=== PATIENT | female | born 1955 | race Caucasian/White ===

== ENCOUNTER 2020-02-27 18:45 | Emergency (ER) | payer OTHER, SELFPAY ==
--- NOTE | 2020-02-27 18:51 | ED.GENADULT ---
HPI - General Adult General Chief complaint: Dizziness Stated complaint: heart papitations/jittery Source: patient and RN notes reviewed Mode of arrival: ambulatory Limitations: no limitations History of Present Illness HPI narrative: This is a 64 years old female presents to the office for an evaluation of chest palpitation at around 4pm. Associated with shortness of breathe, jittery feeling, and feeling lightheaded. She states that it is hard to describe her feeling however she knows something is not right. States, she was playing a video game; felt sudden onset of chest palpitation. She also noticed her fitbit heart rate monitor jumped from 50s-90s while she was sitting and feeling her wrist pulse. She does not smoke or ever smoked. Admits to history of chest palpitation in the past prior to diagnosis of hypertension. Denies history of cardiac problem in the family. Denies drinking caffeinated coffee except one soda today. Related Data Home Medications Medication Instructions Recorded Confirmed lisinopril 02/27/20 Allergies Allergy/AdvReac Type Severity Reaction Status Date / Time No Known Allergies Allergy Verified 10/11/19 12:56 Review of Systems Review of Systems: Narrative: CONSTITUTIONAL: Denies fever or feeling ill ENT: Denies congestion/sore throat CARDIOVASCULAR: Denies chest pain. Reports palpitation RESPIRATORY: Denies wheezing, cough GASTROINTESTINAL: Denies abdominal pain, nausea, vomiting GENITOURINARY: Denies urinary symptoms SKIN: Denies rash MUSCULOSKELETAL: Denies extremities pain NEUROLOGIC: Denies numbness or tingling PMFSH Past Medical History Medical History (Updated 02/27/20 @ 19:19 by MARY Bautista) HTN (hypertension) Surgical History Surgical History H/O: hysterectomy Family History Family History (Updated 02/27/20 @ 19:33 by MARY Bautista) Other Diabetes mellitus Social History Social History (Updated 02/27/20 @ 19:19 by MARY Bautista) Smoking status: Never smoker Comments At time of signature, I agree with nursing past medical, surgical, social and family history. There is no relevant family history pertinent to the presenting complaint. Exam Narrative: Exam Narrative: GENERAL: This is a well-nourished, well-developed patient, in no apparent distress. HEAD: normocephalic, atraumatic. EYES: PERRL. Sclera clear/white. Vision is grossly intact. EARS: External ears normal, auditory canals clear and without drainage, TMs normal without perforation. Hearing grossly intact. NOSE: External nose normal with no obvious nasal discharge, nares without redness, no rhinorrhea. THROAT: Mucous membranes moist, posterior pharynx clear. NECK: Neck supple, non-tender without lymphadenopathy, masses or thyromegaly. CARDIOVASCULAR: Regular rate and rhythm without murmurs, gallops, or rubs. RESPIRATORY: Clear to auscultation. Breath sounds equal bilaterally. No wheezes, rales, or rhonchi. GASTROINTESTINAL: Abdomen soft, non-tender, nondistended. Bowel sounds are active. No hepato-splenomegaly, or palpable masses. No guarding. SKIN: warm, intact with no suspicious lesions or rash, good texture and turgor. NEURO: awake, alert, and oriented to person, place and time. There were no obvious focal neurologic abnormalities. Steady gait EXTREMITIES: Normal range of motion. No edema. No calf tenderness. Negative Homans sign bilaterally. BACK: Nontender without deformity or crepitance. No flank tenderness. Darren Coma Scale Eye Opening: Spontaneous 4 [place] Coma Scale Motor: Obeys Commands 6 Darren Coma Scale Verbal: Oriented 5 Course Vital Signs Vital signs: Vital Signs Temperature 98.6 F 02/27/20 19:00 Pulse Rate 76 02/27/20 19:00 Respiratory Rate 16 02/27/20 19:00 Blood Pressure 187/74 H 02/27/20 19:00 Pulse Oximetry 100 02/27/20 19:00 Temperature 98.6 F 02/27/20 19:00
[2020-02-27 19:00] VITALS: BP 187/74; PULSE 76; RESP 16; TEMP 37; O2SAT 100
--- NOTE | 2020-02-27 19:01 | ECG_ITS ---
Measurements Intervals [place] Rate: 75 P: 53 WV: 112 QRS: 35 QRSD: 118 T: 45 QT: 388 QTc: 435 Interpretive Statements SINUS RHYTHM WITH SHORT [place] INTERVAL INTRAVENTRICULAR CONDUCTION DELAY BASELINE ARTIFACT- I, II, III, AVL, AVF, V3 BORDERLINE ECG Electronically Signed On 02-28-2020 7:07:53 CDT by Lance Aguilar D.O.
== END 2020-02-27 19:18 | disposition left against medical advice (07) ==
PROVIDERS: Emergency Provider Nurse Practitioner; PCP Family Medicine
DX: R00.2 Palpitations (principal); I10 Essential (primary) hypertension
CPT/HCPCS: 93005; 99213; G0463

== ENCOUNTER 2024-12-30 16:09 | Emergency (ER) | payer MEDICARE, SELFPAY ==
--- OUTSIDE RECORDS SUMMARY | 2024-12-30 16:12 | XMS_ITS | Continuity of Care Document ---
Author Organization [facility] Address [address] [place] [address] Phone Care Team Providers Care Information [employer] Name Role Phone Tracy JOSHI, Abdullahi Unavailable Unavailable Allergies, Adverse Reactions, Alerts Substance Reaction Status Criticality No Known Allergies Active No Inform ation Medications Medication Instructions Dosage Effective Dates (start - stop) Status Comments TOPROL XL (unknown strength) Not Available - Active LISINOPRIL (unknown strength) Not Available - Active Procedures Procedure Date DISABILITY EXAMINATION Advance Directives Directive Yes / No Effective Date File Name No Information Encounters Encounter Description Practice Location Reason(s) For Visit Diagnoses Date Provider Providers Copied on Encounter DISABILITY EXAMINATION [facility] , [address], [place], [address], [place] tel:[phone] [facility] Bilateral hand pain Tracy Fernando. [address], [place], [place], [id number]. tel:[phone] Family History Family Member Type Diagnosis Age At Onset Mother Problem (finding) diabetes mellitus type 2 Mother Problem (finding) Cancer, unknown Father Problem (finding) Father Problem (finding) Cancer, unknown (Cause Of ) Mother Problem (finding) hypertension Payers Payer name Insurance type Covered democrat ID Authoriza tion(s) No Information Social History Type Description Quantity Date Captured Comments Alcohol Use Details No Caffeine Use Details Unknown Tobacco Use Status Never smoked tobacco 2014 Smoking Status Never smoker Non-Smoking Tobacco Use Details : No Details Available : No Details Available Sex Female Vital Signs Date / Time: Height Weight BMI Pulse Rate Blood Pressure Temperature Respiratory Rate Body Surface Area Head Circumference Head Circ. Percentile Wt./Oni. Percentile BMI percentile Pulse Ox Inhaled Ox 2:59 PM 67.00 in 98.883 kg (218.00 lbs) 34.1 4 kg/m eter (2) 136/78 mm[Hg] Chief Complaint And Reason For Visit No Information Reason For Referral Reason For Referral No Information History Of Present Illness Encounter Date Complaint History Of Prese nt Illness No Information Functional Status Date Functional Assessmen t No Information Instructions Date Instruction Additional Infor mation No Information Assessments Type Assessment Date assessment Bilateral hand pain Patient Care Teams Name Effective Dates (start - stop) Status Members No Information
--- OUTSIDE RECORDS SUMMARY | 2024-12-30 16:12 | XMS_ITS | Referral Summary ---
Author Organization [facility] Address [address] [place] [address] Care Team Providers Care Gis Geographer Name Role Phone Aiden Cage Primary Care Provider [phone] Clinton Ramos MD Unavailable [phone] Encounters Date Type Department Care Team Description 12/11/2024 8:45 AM VENDOR SPECIALIST Office Visit [facility] Medical [facility] Family Medicine at [address] [place] [address] Aiden Cage PA Class 2 severe obesity due to excess calories with serious comorbidity and body mass index (BMI) of 38.0 to 38.9 in adult (HCC) (Primary Dx); Essential (primary) hypertension 11/17/2024 8:45 AM VENDOR SPECIALIST Office Visit [facility] [address] [place] [address] [place] [phone] Clinton Ramos MD Primary osteoarthritis of right knee (Primary Dx); Primary osteoarthritis of both knees 10/23/2024 Telephone [facility] Medicine [address] [place] [address] [address] [place] [phone] Clinton Ramos MD pain in knee 10/05/2024 Telephone [facility] Family Medicine at [address] [place] [address] Aiden Cage PA Symptom Based Call from Last 3 Months Allergies Active Allergy Reactions Criticality Noted Date Comments Propoxyphene-Acetaminophen Stomach upset Low Medications amLODIPine (NORVASC) 5 mg tabletIndication s:Essential (primary) hypertension Take 1 tablet by mouth once daily 90 tablet 3 05/09/20 24 Active escitalopram (LEXAPRO) 10 mg tablet Take 1 tablet (10 mg total) by mouth daily 30 tablet 5 10/05/20 24 Active Additional Information Patient not taking.Reported on 12/11/2024 celecoxib (CeleBREX) 200 mg capsuleIndicatio ns:Acute pain of left knee Take 1 capsule (200 mg total) by mouth 2 (two) times a day 60 capsule 2 10/25/20 24 025 Active Additional Information Patient not taking.Reported on 12/11/2024 hydrOXYzine (ATARAX) 25 mg tablet Take 1 tablet (25 mg total) by mouth every 8 (eight) hours as needed for anxiety 30 tablet 10/30/20 24 Active Additional Information Patient not taking.Reported on 12/11/2024 lisinopriL (PRINIVIL,ZESTRI L) 20 mg tabletIndication s:Essential (primary) hypertension Take 1 tablet by mouth once daily 90 tablet 11/14/20 24 Active semaglutide (Wegovy) 0.25 mg/0.5 mL auto-injectorInd ications:Class 2 severe obesity due to excess calories with serious comorbidity and body mass index (BMI) of 38.0 to 38.9 in adult ([facility]) Inject 0.5 mL (0.25 mg total) under the skin every 7 days 2 mL 12/11/19 25 Active HYDROcodone-acet aminophen (NORCO) 5-325 mg per tabletIndication s:Pain Take 1 tablet by mouth every 8 (eight) hours as needed for pain 30 tablet 12/15/19 25 Active tirzepatide, weight loss, (Zepbound) 2.5 mg/0.5 mL pen injectorIndicati ons:Class 2 severe obesity due to excess calories with serious comorbidity and body mass index (BMI) of 36.0 to 36.9 in adult ([facility]) Inject 0.5 mL (2.5 mg total) under the skin every 7 days 2 mL 09/04/20 24 025 Discontin ued(Alter keshia therapy) HYDROcodone-acet aminophen (NORCO) 5-325 mg per tabletIndication s:Pain Take 1 tablet by mouth every 8 (eight) hours as needed for pain 30 tablet 11/24/20 025 Discontin ued(Reord er) Active Problems Problem Noted Date Diagnosed Date Low bone mass 08/11/2023 Assessment & Plan (08/11/2023 9:55 AM CDT): Chronic condition Start calcium and vitamin-D Varicose veins of both lower extremities with pa in 08/11/2023 Assessment & Plan (08/27/2023 11:22 AM CDT): Chronic bulky varicosities noted to both lower extremities which are symptomatic for the past several years. Complains of achiness and heaviness especially associated with periods of long standing. Has been wearing compression for the past several years which has not helped her symptoms. Plan: Obtain a lower extremity venous reflux and follow-up in the next few weeks. Assessment & Plan (08/11/2023 9:57 AM CDT): Chronic worsening Refer to vascular Grief 12/15/2021 Assessment & Plan (12/15/2021 4:14 PM VENDOR SPECIALIST): Chronic condition Start lexapro 10mg every day Continue xanax Spider bite 01/15/2021 Assessment & Plan (01/15/2021 3:27 PM VENDOR SPECIALIST): patient was advised of possible complications of procedure and aknowledges understanding. Consent was obtained prior to procedure. Betadine skin prep applied. 1% lidocaine with epi was used for local anesthetic. #11 blade was used to make a 1 cm incision dissected to appropriate depth of the right abdominal wall.. iodoform packing was placed. routine dressing was applied. Patient was advised of routine wound care and packing removal. Patient finesse procedure well without incident. Patient was advised to call with any concerns/complications. FH: CAD (coronary artery disease) 11/15/2020 Assessment & Plan (11/15/2020 11:13 AM VENDOR SPECIALIST): Refer to cardiology for stress test PAC (premature atrial contraction) 06/25/2020 Assessment & Plan (06/25/2020 2:44 PM CDT): Will start metoprolol since she is symptomatic with palpitations. Await echo. If no improvement with metoprolol we will refer to cardiology Class 2 severe obesity due t o excess calories with serious comorbidity and body mass index (BMI) of 38.0 to 38.9 in adult 09/12/2018 Assessment & Plan (12/11/2024 9:46 AM VENDOR SPECIALIST): Chronic not at goal Will likely be getting dion knee replacement sooner than later We will work on weight reduction Start wegovjeet to help with weight reduction prior to surgery Assessment & Plan (09/04/2024 10:24 AM CDT): Chronic and not well controlled Start zepbound Assessment & Plan (04/03/2024 1:22 PM CDT): Chronic and not well controlled Restart adipex Restart topamax titration Assessment & Plan (02/15/2024 9:59 AM CDT): Chronic not at goal and is halting needed surgery of knee replacment Needs 20lb + loss for surgical clearance Start zepound Assessment & Plan (11/11/2023 10:03 AM VENDOR SPECIALIST): Chronic uncontrolled, reduce processed carb/starch, exercise as finesse, whole foods Assessment & Plan (08/11/2023 9:38 AM CDT): Chronic not at goal Chronic uncontrolled, reduce processed carb/starch, exercise as finesse, whole foods D/c wegovy with no insurance coverage Assessment & Plan (06/08/2023 4:53 PM CDT): Chronic not at goal Start wegovy Assessment & Plan (03/30/2023 9:10 AM CDT): Chronic and not at goal Start adipex Chronic uncontrolled, reduce processed carb/starch, exercise as finesse, whole foods Assessment & Plan (07/06/2022 9:25 AM CDT): Chronic condition not at goal Work with 1200 calorie diet. Work on starting to read place her high carb high starch foods and drinks. Refill phentermine Continue Topamax Assessment & Plan (06/02/2022 9:11 AM CDT): Chronic and not well controlled Start adipex1/2 37.5 Start topamax. Assessment & Plan (05/02/2021 8:59 AM CDT): Chronic condition uncontrolled. Start topamax titration Assessment & Plan (04/10/2019 4:40 PM CDT): Continue with dietary changes and refill adipex. Situational anxiety 03/22/2018 Assessment & Plan (07/06/2022 9:24 AM CDT): Chronic condition intermittent exacerbations Refill Xanax. Assessment & Plan (01/26/2022 2:22 PM VENDOR SPECIALIST): Chronic persistent Responds to xanax. Assessment & Plan (12/15/2021 4:21 PM VENDOR SPECIALIST): Chronic condition worsening due to grief. continue with Xanax. Assessment & Plan (11/15/2020 11:14 AM VENDOR SPECIALIST): Well controlled on current regimen, no rx changes needed. Continue lifestyle modifications Assessment & Plan (10/18/2020 9:38 AM VENDOR SPECIALIST): Increase xanax #45 Assessment & Plan (07/26/2020 8:28 AM CDT): Well controlled on current regimen, no rx changes needed. Continue lifestyle modifications Assessment & Plan (05/28/2020 1:35 PM CDT): Improved with use of xanax particularly in the evening Essential (primary) hypertension 03/22/2018 Assessment & Plan (12/11/2024 9:45 AM VENDOR SPECIALIST): Chronic stable and well controlled Continue lisinopril Continue amlodipine Assessment & Plan (09/04/2024 10:28 AM CDT): Chronic stable and well controlled Continue lisinopril Continue amlodipine Assessment & Plan (05/29/2024 10:23 AM CDT): Chronic stable and well controlled Continue lisinopril Continue amlodipine Assessment & Plan (04/03/2024 1:23 PM CDT): Chronic stable and well controlled Continue lisinopril Continue amlodipine Assessment & Plan (11/11/2023 10:02 AM VENDOR SPECIALIST): Chronic stable and well controlled Continue lisinopril Continue amlodipine Assessment & Plan (08/11/2023 9:56 AM CDT): Chronic stable and well controlled Continue lisinopril Start amlodipine 5mg Assessment & Plan (06/08/2023 4:50 PM CDT): Chronic stable and well controlled Continue lisinopril Assessment & Plan (12/18/2022 7:47 AM VENDOR SPECIALIST): Chronic and stable Continue with amlodipine and lisinopril Assessment & Plan (07/06/2022 9:24 AM CDT): Chronic stable at goal Continue amlodipine and lisinopril. Assessment & Plan (06/02/2022 9:15 AM CDT): Chronic stable at goal continue amlodipine 5 mg lisinopril 20 mg Assessment & Plan (04/29/2022 2:33 PM CDT): Chronic uncontrolled Decrease amlodipine 5mg Hold metoprolol Assessment & Plan (12/15/2021 4:20 PM VENDOR SPECIALIST): Chronic condition \ Historically well-controlled elevated likely due to increased stress and anxiety with grieving today. Will continue to monitor going forward. Assessment & Plan (01/21/2021 9:10 AM VENDOR SPECIALIST): Chronic conditions stable Refill metoprolol Continue current regimen Assessment & Plan (11/15/2020 11:36 AM VENDOR SPECIALIST): Well controlled on current regimen, no rx changes needed. Continue lifestyle modifications Assessment & Plan (10/18/2020 9:33 AM VENDOR SPECIALIST): Change script to lisinopril 20mg tablet Assessment & Plan (08/23/2020 10:17 AM CDT): Increaser metoprolol xl 100mg Decrease lisinopril 20mg Assessment & Plan (07/26/2020 8:11 AM CDT): Increase metoprolol 100mg Assessment & Plan (06/25/2020 2:42 PM CDT): Start toprol xl 50mg Assessment & Plan (05/28/2020 1:35 PM CDT): Start hctz 12.5mg Improved but still not at goal Assessment & Plan (05/14/2020 1:29 PM CDT): Increase lisinopril 40mg Ekg: Normal sinus rhythm heart rate 78 no acute changes no ST elevation or depression no irregularity. Assessment & Plan (04/10/2019 4:36 PM CDT): Well controlled on current regimen, no rx changes needed. Continue lifestyle modifications Other spondylosis, cervical region 06/22/2017 Primary osteoarthritis of both knees 01/11/2017 Assessment & Plan (09/04/2024 10:30 AM CDT): Chronic worsening with bone on bone Continue f/u with orthopedic Continue norco Preparing for dion knee replacement Give handicap placard Assessment & Plan (05/29/2024 10:24 AM CDT): Chronic worsening with bone on bone Continue f/u with orthopedic Continue norco Preparing for dion knee replacement Assessment & Plan (11/11/2023 10:02 AM VENDOR SPECIALIST): Chronic worsening with bone on bone Continue f/u with orthopedic Continue norco Preparing for dion knee replacement Assessment & Plan (08/11/2023 9:37 AM CDT): Chronic worsening with bone on bone Continue f/u with orthopedic Continue norco Assessment & Plan (06/08/2023 4:49 PM CDT): Chronic not well controlled Had to postpone knee replacement secondary to family medical needs D/c tylenol 3 Start norco 5/325 q8 hrs prn #60 Assessment & Plan (07/06/2022 9:24 AM CDT): Chronic condition persistent symptoms progressive in nature Refill tramadol Assessment & Plan (06/02/2022 9:15 AM CDT): Chronic condition in stage Continue follow-up with orthopedic implant for bilateral knee replacement. Assessment & Plan (04/29/2022 2:34 PM CDT): Chronic conditon Persistent and seeing ortho with likely knee replacement in near future Continue tramadol and celebrex. Assessment & Plan (01/26/2022 2:10 PM VENDOR SPECIALIST): Chronic and worsening Refer to dr schmidt. Reviewed xray images with patient Assessment & Plan (05/02/2021 8:54 AM CDT): Chronic condition uncontrolled with worsening of symptoms. Give dion knee injections today. RISKS AND BENEFITS OF PROCEDURE WERE EXPLAINED TO PATIENT AND CONSENT FORM WAS SIGNED. AREA WAS PREPPED WITH BETADINE TO SKIN AND DRAPED IN A STERILE MANOR. 1 1/2CC kenolog AND 1 1/2 CC LIDOCAINE WAS INJECTED INTO right and left knee JOINT WITH LATERAL APPROACH. PATIENT TOLERATED PROCEDURE WELL WITHOUT COMPLICATION. APPROPRIATE BANDAGE APPLIED. PATIENT ADVISED TO CALL WITH ANY CONCERNS/COMPLICATIONS. Assessment & Plan (01/21/2021 9:10 AM VENDOR SPECIALIST): Chronic condition stable but progressive in nature. Continue [id number] anti-inflammatories p.r.n.. May use glucosamine chondroitin as well. Lumbar back pain 10/08/2016 Bilateral chronic knee pain 07/13/2016 Effusion of knee 12/23/2015 Osteoarthritis of knee 12/23/2015 Assessment & Plan (12/18/2022 7:50 AM VENDOR SPECIALIST): Chronic and persistent following with orthopedic and will likely be obtaining knee replacement. Assessment & Plan (12/15/2021 4:20 PM VENDOR SPECIALIST): Chronic condition worsening Order x-ray left knee Assessment & Plan (08/23/2020 10:18 AM CDT): Xray left Assessment & Plan (07/26/2020 8:21 AM CDT): RISKS AND BENEFITS OF PROCEDURE WERE EXPLAINED TO PATIENT AND CONSENT FORM WAS SIGNED. AREA WAS PREPPED WITH BETADINE TO SKIN AND DRAPED IN A STERILE MANOR. 1 1/2CC kenolog AND 1 1/2 CC LIDOCAINE WAS INJECTED INTO left knee JOINT WITH LATERAL APPROACH. PATIENT TOLERATED PROCEDURE WELL WITHOUT COMPLICATION. APPROPRIATE BANDAGE APPLIED. PATIENT ADVISED TO CALL WITH ANY CONCERNS/COMPLICATIONS. Immunizations Name Administration Dates Next Due Influenza, Quadrivalent, Hig h Dose, Preservative Free, Intrr 11/11/2023 Influenza, Quadrivalent, Rec ombinant, Egg Free, Preservative Free, Intramuscular 10/03/2022,11/25/2021 Influenza, Quadrivalent, Spl it, Preservative Free, Intramuscular 10/21/2020,09/20/2020,08/02/2019,08/12,08/03/2017 Influenza, Trivalent, High D ose, Split, Preservative Free, Intramuscular 09/04/2024 Influenza, Trivalent, IM (MDV) 08/18/2015,2012 Influenza, Trivalent, Preser vative Free, Intramuscular 08/05/2016 Pneumococcal Conjugate Pcv20 11/11/2023 Tdap 08/03/2017 Social History Tobacco Use Types Packs/Day Years Used Date Smoking Tobacco: Never Smokeless Tobacco: Never Tobacco Cessation:Counseling Given: Not Answered Alcohol Use Standard Drinks/Week Comments Yes 0 (1 standard drink = 0.6 oz pur e alcohol) occasionally AUDIT-C Answer Date Recorded Q1: How often do you have a drink containing alc ohol? Monthly or less 09/04/2024 Q2: How many drinks containi ng alcohol do you have on a typical day when you are drinking? 1 or 2 09/04/2024 Q3: How often do you have si x or more drinks on one occasion? Less than monthly 09/04/2024 PHQ-2 Answer Date Recorded PHQ-2 Total Score (If total score is 3 or more points, staff should administer the PHQ-9) 0 02/15/2024 Comments No Sex and Gender Information Value Date Recorded Sex Assigned at Not on file Legal Sex Female 6:57 AM VENDOR SPECIALIST Gender Identity Not on file Sexual Orientation Not on file Last Filed Vital Signs Vital Sign Reading Time Taken Comments Blood Pressure 142/78 12/11/2024 9:02 AM VENDOR SPECIALIST Pulse 73 12/11/2024 9:02 AM VENDOR SPECIALIST Temperature 36.3 ??C (97.3 ??F) 12/11/2024 9:02 AM CS T Respiratory Rate 18 12/11/2024 9:02 AM VENDOR SPECIALIST Oxygen Saturation 98% 12/11/2024 9:02 AM VENDOR SPECIALIST Inhaled Oxygen Concentration - - Weight 112.4 kg (247 lb 11.2 oz) 12/11/2024 9:02 AM VENDOR SPECIALIST Height 170.2 cm (5' 7.01 ) 12/11/2024 9:02 AM CS T Body Mass Index 38.79 12/11/2024 9:02 AM VENDOR SPECIALIST Plan of Treatment Not on file Procedures Procedure Name Priority Date/Time Associated Diagnosis Comments IN ARTHROCENTESIS ASPIR&/INJ MAJOR JT/BURSA W/O US Routine 11/17/2024 8:45 AM VENDOR SPECIALIST Primary osteoarthritis of right knee Primary osteoarthritis of both knees HEPATITIS C ANTIBODY Routine 12/21/2023 10:48 AM VENDOR SPECIALIST Need for hepatitis C screening test SCREENING MAMMOGRAM BILATERAL W BATOOL Schedule Routine, Read Routine (OP Routine) 12/01/2023 3:11 PM VENDOR SPECIALIST Screening mammogram, encounter for DEXA AXIAL SKELETON BONE DENSITY 1 OR MORE SITES Schedule Routine, Read Routine (OP Routine) 06/29/2023 7:33 AM CDT Menopausal and perimenopausal disorder COLONOSCOPY Routine 05/03/2023 from Last 3 Months or Most Recently Relevant to Health Maintenance Results * IN ARTHROCENTESIS ASPIR&/INJ MAJOR JT/BURSA W/O US (11/17/2024 8:45 AM VENDOR SPECIALIST) Narrative Clinton Ramos MD - 11/17/2024 8:45 AM VENDOR SPECIALIST Clinton Ramos MD ? 11/17/2024 ??9:18 AM Large Joint (Hip, Knee, Shoulder) Injection: bilateral knee Performed by: Clinton Ramos MD Authorized by: Clinton Ramos MD ?? Large Joint Injection/Aspiration: ??Consent Given by: ??Patient ??Written consent obtained: Yes ?? Supporting Documentation: ??Indications: ??Pain Procedure Details: ??Location: ??Knee ??Site: ??Bilateral knee ??Prep: patient was prepped using a clean technique (The skin was anesthetized with ethyl chloride spray prior to the injections.) ?Needle Size: ??25 G ??Medications Right Large Joint Injection: ??2 mL lidocaine 10 mg/mL (1 %); 40 mg triamcinolone 40 mg/mL ??Medications Left ??Large Joint Injection: ??2 mL lidocaine 10 mg/mL (1 %); 40 mg triamcinolone 40 mg/mL ??Patient tolerance: ??Patient tolerated the procedure well with no immediate complications Clinton Ramos MD IN CLINIC/BEDSIDE ORDERABL ES Final Result * Hepatitis C antibody Blood (12/21/2023 10:48 AM VENDOR SPECIALIST) Hep C Ab Nonreactive Nonreactive [facility] Comment: Antibodies to HCV not detected. Does NOT exclude the possibility of recent exposure to HCV. Current interpretive data was last revised on 22 Interpretive Data Nonreactive: Antibodies to HCV not detected. Does NOT exclude the possibility of recent exposure to HCV. Equivocal: Equivocal for HCV antibodies. Supplemental molecular testing will be automatically performed to determine infection status in accordance with current CDC screening recommendations. ?? Reactive: Positive for HCV antibodies. ??This may represent current or past HCV infection. Supplemental molecular testing will be automatically performed to determine ??current infection status in accordance with current CDC screening recommendations. Interpretive data was last revised on 2020. Blood 12/21/2023 10:4 8 AM VENDOR SPECIALIST 12/21/2023 11:04 AM VENDOR SPECIALIST us [facility] - [facility] Final Result [facility] [address] [facility] Department [place] [address] * Screening Mammogram Bilateral W Batool (12/01/2023 3:11 PM VENDOR SPECIALIST) Anatomical Region Laterality Modality Breast Bilateral Mammography Impressions 12/01/2023 3:14 PM VENDOR SPECIALIST BI-RADS?? ATLAS category (overall): 1 - Negative There is no mammographic evidence of malignancy. A 1 year screening mammogram is recommended. The patient has been or will be contacted. We recommend annual screening mammography for women at average risk of breast cancer beginning at age 40, based on guidelines of the [employer] [place] [employer] (ACR Practice Parameter for the Performance of Screening and Diagnostic Mammography) and [employer] [place] [employer]. For women with and elevated risk of breast cancer, please refer to the ACR Practice Parameter for specific screening recommendations. The patient will be entered into a reminder system with a target due date of 1 year for her next screening exam. Narrative 12/01/2023 3:14 PM VENDOR SPECIALIST Screening Mammogram Bilateral W Batool: 12/01/23 The study was acquired using full field digital technology and interpreted from soft copy. 2D digital mammographic views, as well as 3D digital tomosynthesis were performed in the CC, XCCL, and MLO projections. CLINICAL: ??Screening mammogram, encounter for (order) ??No relevant medical history has been documented for this patient. ??No known family history of breast cancer. COMPARISONS: 06/24/2021 Screening Mammogram Bilateral W Batool 07/19/2018 Screening Mammogram 2D Bilateral 04/08/2017 Screening Mammogram 2D Bilateral BREAST TISSUE: The breasts have scattered areas of fibroglandular density. FINDINGS: No suspicious masses, suspicious calcifications, or other suspicious findings are seen within either breast. There has been no suspicious change. us Aiden [facility] IMG MAMMO PROCEDURES Final Resu lt * Dexa Axial Skeleton Bone Density 1 or 2 Site (06/29/2023 7:33 AM CDT) Anatomical Region Laterality Modality Body N/A Mammography 06/30/2023 7:58 AM CDT Narrative 06/30/2023 7:59 AM CDT EXAM DESCRIPTION: DEXA AXIAL SKELETON BONE DENSITY 1 OR MORE SITES REASON FOR STUDY: 67 y/o ?? year old ??F ??with given history of: ??Postmenopausal status. ??Patient has taken or is taking vitamin-D. ? 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 Maximum height: ??68 ??inches ? Weight: ??227.5 ??pounds Risk factors: ??None COMPARISON: None available FINDINGS: AP LUMBAR SPINE L1-L4: Total BMD is 1.054 g/cm2 T-score is 0.1 LEFT HIP: Total BMD is 0.874 g/cm2 T-score is -0.6 Femoral neck BMD is 0.663 g/cm2 T-score is -1.7 ?? FRAX: 10 year risk for a major osteoporotic fracture is 8.6 %, 10 year risk for a hip fracture is 1.0 % IMPRESSION: Low bone mass REFERENCE: Bone mineral density: ? Normal (T-score above or = -1.0) ? Low bone mass ??(T-score between -1.0 and -2.5) replaces the previously used term osteopenia ? Osteoporosis (T-score = or below -2.5) Medical evaluation for secondary causes of low bone mineral density may be appropriate. FRAX is a World Health Organization validated fracture risk assessment tool that calculates a person's 10 year probability of a major osteoporosis related fracture and hip fracture. ??According to the National Osteoporosis Foundation guidelines, postmenopausal women and men age 50 or older with low bone mass and a 10 year probability of a major osteoporosis related fracture = or greater than 20% or a 10 year probability of a hip fracture = or greater than 3% should be considered for treatment. For further information, including treatment recommendations, please refer to the 2019 ISCD Official Positions (http://www.iscd.org) and the NOF's Clinician's Guide to Prevention and Treatment of Osteoporosis (http://www.nof.org/professionals/clinical-guidelines) THIS IS AN ELECTRONICALLY VERIFIED FINAL REPORT 06/30/2023 7:59 AM - Electronically signed by ??Ghazala Junior M.D. TW: TW D: ??06/30/2023 7:59 AM T: ??06/30/2023 7:59 AM Report ID: [id number] Reading Location: ??[id number] Procedure Note Ghazala Junior MD - 06/30/2023 EXAM DESCRIPTION: DEXA AXIAL SKELETON BONE DENSITY 1 OR MORE SITES REASON FOR STUDY: 67 y/o year old F with given history of:Postmenopausal status. Patient has taken or is taking vitamin-D. 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 (S/N [id number]) CLINICAL INFORMATION: Current height: 67 inches Maximum height: 68 inches Weight: 227.5 pounds Risk factors: None COMPARISON: None available FINDINGS: AP LUMBAR SPINE L1-L4: Total BMD is 1.054 g/cm2 T-score is 0.1 LEFT HIP: Total BMD is 0.874 g/cm2 T-score is -0.6 Femoral neck BMD is 0.663 g/cm2 T-score is -1.7 FRAX: 10 year risk for a major osteoporotic fracture is 8.6 %, 10 year risk fora hip fracture is 1.0 % IMPRESSION: Low bone mass REFERENCE: Bone mineral density: Normal (T-score above or = -1.0) Low bone mass (T-score between -1.0 and -2.5) replaces thepreviously used term osteopenia Osteoporosis (T-score = or below -2.5) Medical evaluation for secondary causes of low bone mineral density may be appropriate. FRAX is a World Health Organization validated fracture risk assessmenttool that calculates a person's 10 year probability of a major osteoporosisrelated fracture and hip fracture. According to the National OsteoporosisFoundation guidelines, postmenopausal women and men age 50 or older with low bonemass and a 10 year probability of a major osteoporosis related fracture = or greater than 20% or a 10 year probability of a hip fracture = or greaterthan 3% should be considered for treatment. For further information, including treatment recommendations, please referto the 2019 ISCD Official Positions (http://www.iscd.org) and the NOF's Clinician's Guide to Prevention and Treatment of Osteoporosis (http://www.nof.org/professionals/clinical-guidelines) THIS IS AN ELECTRONICALLY VERIFIED FINAL REPORT 06/30/2023 7:59 AM - Electronically signed by Ghazala Junior M.D. TW: TW Report ID: [id number] Reading Location: [id number] Aiden MCLEOD IMG DXA PROCEDURES Final Result * Colonoscopy (05/03/2023) Anatomical Region Laterality Modality Other Historical Provider MD ENDOSCOPY PROCEDURES Jesusita l Result from Last 3 Months or Most Recently Relevant to Health Maintenance [facility] MEDIC[facility] SOLUTIONS [facility] MEDICARE SOLUTIONS Care Teams Gis Geographer Relationship Specialty Start Date End Date Aiden Cage PA PCP - General Family Medicine 08/26/22 Clinton Ramos MD [address] [facility] [address] Consulting Physician Orthopedic Surgery 02/15/24
--- OUTSIDE RECORDS SUMMARY | 2024-12-30 16:12 | XMS_ITS | Clinical Summary ---
Author Organization [facility] Address [address] [place] [address] Care Team Providers Care Paper Sorter And Counter Name Role Phone Aiden Cage Primary Care Provider [phone] Clinton Ramos MD Unavailable [phone] Allergies Active Allergy Reactions Criticality Noted Date [...] as needed for pain 30 tablet 11/24/20 24 025 Discontin ued(Reord er) Active Problems Problem [...] 12/15/2021 Assessment & Plan (12/15/2021 4:14 PM CORN DETASSELER): Chronic condition Start lexapro 10mg every day Continue xanax Spider bite 01/15/2021 Assessment & Plan (01/15/2021 3:27 PM CORN DETASSELER): patient was advised of possible complications of [...] 11/15/2020 Assessment & Plan (11/15/2020 11:13 AM CORN DETASSELER): Refer to cardiology for stress test PAC [...] 09/12/2018 Assessment & Plan (12/11/2024 9:46 AM CORN DETASSELER): Chronic not at goal Will likely be getting dion knee replacement sooner than later We will work on weight reduction Start christie to help with weight reduction prior to [...] zepound Assessment & Plan (11/11/2023 10:03 AM CORN DETASSELER): Chronic uncontrolled, reduce processed carb/starch, exercise as [...] Xanax. Assessment & Plan (01/26/2022 2:22 PM CORN DETASSELER): Chronic persistent Responds to xanax. Assessment & Plan (12/15/2021 4:21 PM CORN DETASSELER): Chronic condition worsening due to grief. continue with Xanax. Assessment & Plan (11/15/2020 11:14 AM CORN DETASSELER): Well controlled on current regimen, no rx changes needed. Continue lifestyle modifications Assessment & Plan (10/18/2020 9:38 AM CORN DETASSELER): Increase xanax #45 Assessment & Plan (07/26/2020 8:28 AM CDT): Well controlled on current regimen, no rx changes needed. Continue lifestyle modifications Assessment & Plan (05/28/2020 1:35 PM CDT): Improved with use of xanax particularly in the evening Essential (primary) hypertension 03/22/2018 Assessment & Plan (12/11/2024 9:45 AM CORN DETASSELER): Chronic stable and well controlled Continue lisinopril Continue amlodipine Assessment & Plan (09/04/2024 10:28 AM CDT): Chronic stable and well controlled Continue lisinopril Continue amlodipine Assessment & Plan (05/29/2024 10:23 AM CDT): Chronic stable and well controlled Continue lisinopril Continue amlodipine Assessment & Plan (04/03/2024 1:23 PM CDT): Chronic stable and well controlled Continue lisinopril Continue amlodipine Assessment & Plan (11/11/2023 10:02 AM CORN DETASSELER): Chronic stable and well controlled Continue lisinopril Continue amlodipine Assessment & Plan (08/11/2023 9:56 AM CDT): Chronic stable and well controlled Continue lisinopril Start amlodipine 5mg Assessment & Plan (06/08/2023 4:50 PM CDT): Chronic stable and well controlled Continue lisinopril Assessment & Plan (12/18/2022 7:47 AM CORN DETASSELER): Chronic and stable Continue with amlodipine and lisinopril Assessment & Plan (07/06/2022 9:24 AM CDT): Chronic stable at goal Continue amlodipine and lisinopril. Assessment & Plan (06/02/2022 9:15 AM CDT): Chronic stable at goal continue amlodipine 5 mg lisinopril 20 mg Assessment & Plan (04/29/2022 2:33 PM CDT): Chronic uncontrolled Decrease amlodipine 5mg Hold metoprolol Assessment & Plan (12/15/2021 4:20 PM CORN DETASSELER): Chronic condition \ Historically well-controlled elevated likely due to increased stress and anxiety with grieving today. Will continue to monitor going forward. Assessment & Plan (01/21/2021 9:10 AM CORN DETASSELER): Chronic conditions stable Refill metoprolol Continue current regimen Assessment & Plan (11/15/2020 11:36 AM CORN DETASSELER): Well controlled on current regimen, no rx changes needed. Continue lifestyle modifications Assessment & Plan (10/18/2020 9:33 AM CORN DETASSELER): Change script to lisinopril 20mg tablet Assessment [...] replacement Assessment & Plan (11/11/2023 10:02 AM CORN DETASSELER): Chronic worsening with bone on bone Continue [...] celebrex. Assessment & Plan (01/26/2022 2:10 PM CORN DETASSELER): Chronic and worsening Refer to dr schmidt. [...] CONCERNS/COMPLICATIONS. Assessment & Plan (01/21/2021 9:10 AM CORN DETASSELER): Chronic condition stable but progressive in nature. Continue glwr-wsm-eyeoalk anti-inflammatories p.r.n.. May use glucosamine chondroitin as well. Lumbar back pain 10/08/2016 Bilateral chronic knee pain 07/13/2016 Effusion of knee 12/23/2015 Osteoarthritis of knee 12/23/2015 Assessment & Plan (12/18/2022 7:50 AM CORN DETASSELER): Chronic and persistent following with orthopedic and will likely be obtaining knee replacement. Assessment & Plan (12/15/2021 4:20 PM CORN DETASSELER): Chronic condition worsening Order x-ray left knee [...] PATIENT ADVISED TO CALL WITH ANY CONCERNS/COMPLICATIONS. Encounters Date Type Department Care Team Description 12/11/2024 8:45 AM CORN DETASSELER Office Visit [facility] at [address] [place] [address] Aiden Cage PA Class 2 severe obesity due to excess calories with serious comorbidity and body mass index (BMI) of 38.0 to 38.9 in adult (HCC) (Primary Dx); Essential (primary) hypertension 11/17/2024 8:45 AM CORN DETASSELER Office Visit [facility] [address] [place] [address] [place] [phone] Clinton Ramos MD Primary osteoarthritis of right knee (Primary Dx); Primary osteoarthritis of both knees 10/23/2024 Telephone [facility] [address] [place] [address] [address] [place] [address] Clinton Ramos MD pain in knee 10/05/2024 Telephone [facility] at [address] [place] [address] Aiden Cage PA Symptom Based Call from Last 3 Months Immunizations Name Administration Dates Next Due Influenza, Quadrivalent, Hig h Dose, Preservative Free, Intrr 11/11/2023 Influenza, Quadrivalent, Rec ombinant, Egg Free, Preservative Free, Intramuscular 10/03/2022,11/25/2021 Influenza, Quadrivalent, Spl it, Preservative Free, Intramuscular 10/21/2020,09/20/2020,08/02/2019,08/12,08/03/2017 Influenza, Trivalent, High D ose, Split, Preservative Free, Intramuscular 09/04/2024 Influenza, Trivalent, IM (MDV) 08/18/2015,2012 Influenza, Trivalent, Preser vative Free, Intramuscular 08/05/2016 Pneumococcal Conjugate Pcv20 11/11/2023 Tdap 08/03/2017 Surgical History Surgery Date Site/Laterality Comments CERVICAL BIOPSY W/ LOOP ELECTRODE EXCISION FINGER SURGERY KNEE SURGERY HYSTERECTOMY OOPHORECTOMY Bilateral Medical History Medical History Date Comments Hypertension Anxiety Obesity MVP (mitral valve prolapse) Family History Medical History Relation Name Comments Diabetes Brother Heart disease Brother Hyperlipidemia Brother Hypertension Brother Cancer Daughter 1 Cancer Father Family history of malignant neoplasm - (Added by TW Conv) Arthritis Mother Family history of arthritis - (Added by TW Conv) Cancer Mother Family history of malignant neoplasm - (Added by TW Conv) Diabetes Mother Family history of diabetes mellitus - (Added by TW Conv) Hypertension Mother Family history of hypertension - (Added by TW Conv) Diabetes Sister 1 Hypertension Sister 1 Family history of hypertension - (Added by TW Conv) Diabetes Sister 2 Family history of diabetes mellitus - (Added by TW Conv) Hypertension Sister 2 Relation Name Status Comments Brother Alive Daughter 1 Alive Daughter 2 Alive Father Mother Sister 1 Sister 2 Son Alive Social History Tobacco Use Types Packs/Day Years [...] on file Legal Sex Female 6:57 AM CORN DETASSELER Gender Identity Not on file Sexual Orientation Not on file Obstetrics History Para Term AB IAB SAB Ectopic Multiple Livin g Live Births 3 3 3 Date Outcome GA Total Labor Labor/2nd/3rd Weight Sex Type Anes PTL Tania A1 A5 Name Clin Term Term Term Last Filed Vital Signs Vital Sign Reading Time Taken Comments Blood Pressure 142/78 12/11/2024 9:02 AM CORN DETASSELER Pulse 73 12/11/2024 9:02 AM CORN DETASSELER Temperature 36.3 ??C (97.3 ??F) 12/11/2024 9:02 AM CS T Respiratory Rate 18 12/11/2024 9:02 AM CORN DETASSELER Oxygen Saturation 98% 12/11/2024 9:02 AM CORN DETASSELER Inhaled Oxygen Concentration - - Weight 112.4 kg (247 lb 11.2 oz) 12/11/2024 9:02 AM CORN DETASSELER Height 170.2 cm (5' 7.01 ) 12/11/2024 9:02 AM CS T Body Mass Index 38.79 12/11/2024 9:02 AM CORN DETASSELER Plan of Treatment Health Maintenance Due Date Last Done Comments Hepatitis B Screening 1975 Zoster Vaccine (1 of 2) 2007 Covid-19 Vaccine (2023-2 5 season) 2024 10/28/2022, 06/10/2022, 11/13/2021, Additional history exists Breast Cancer Screening-Mammogram 12/01/2024 12/01/2023, 06/24/2021, 07/19/2018, Additional history exists Depression Screening 02/14/2025 02/15/2024, 06/08/2023, 06/02/2022, Additional history exists Fall Risk Assessment 02/14/2025 02/15/2024, 12/18/19 23 Well Visit 65+ 02/14/2025 02/15/2024 Osteoporosis Screening-Bone Density Scan 06/29/2025 06/29/2023 DTaP/Tdap/Td Vaccine (2 - Td or Tdap) 08/03/2027 08/03/2017 Colon Cancer Screening-Colonoscopy 05/03/2028 05/03/2023, 03/23/2023, 04/13/2017 Colon Cancer Screening-CT Colonography Discontinued 05/03/2023, 03/23/2023, 04/13/2017 Colon Cancer Screening-DNA Stool Discontinued 05/03/2023, 03/23/2023, 04/13/2017 Colon Cancer Screening-FIT Discontinued 05/03, 03/23/2023, 04/13/2017 Colon Cancer Screening-Sigmoidoscopy Discontinued 05/03/2023, 03/23/2023, 04/13/2017 Pneumococcal vaccine 65+ Completed 11/11/2023 Hepatitis C Screening Completed 12/21/2023 Influenza Vaccine Completed 09/04/2024, , 10/03/2022, Additional history exists Procedures Procedure Name Priority Date/Time Associated Diagnosis Comments AL ARTHROCENTESIS ASPIR&/INJ MAJOR JT/BURSA W/O US Routine 11/17/2024 8:45 AM CORN DETASSELER Primary osteoarthritis of right knee Primary osteoarthritis of both knees HEPATITIS C ANTIBODY Routine 12/21/2023 10:48 AM CORN DETASSELER Need for hepatitis C screening test SCREENING MAMMOGRAM BILATERAL W BATOOL Schedule Routine, Read Routine (OP Routine) 12/01/2023 3:11 PM CORN DETASSELER Screening mammogram, encounter for DEXA AXIAL SKELETON BONE DENSITY 1 OR MORE SITES Schedule Routine, Read Routine (OP Routine) 06/29/2023 7:33 AM CDT Menopausal and perimenopausal disorder COLONOSCOPY Routine 05/03/2023 from Last 3 Months or Most Recently Relevant to Health Maintenance Results * AL ARTHROCENTESIS ASPIR&/INJ MAJOR JT/BURSA W/O US (11/17/2024 8:45 AM CORN DETASSELER) Narrative Clinton Ramos MD - 11/17/2024 8:45 AM CORN DETASSELER Clinton Ramos MD ? 11/17/2024 ??9:18 AM [...] the procedure well with no immediate complications us Clinton Ramos MD IN CLINIC/BEDSIDE ORDERABL ES Final Result * Hepatitis C antibody Blood (12/21/2023 10:48 AM CORN DETASSELER) Hep C Ab Nonreactive Nonreactive MARISOL LIN Comment: Antibodies to HCV not detected. Does [...] on 2020. Blood 12/21/2023 10:4 8 AM CORN DETASSELER 12/21/2023 11:04 AM CORN DETASSELER Aiden MCLEOD LAB MICROBIOLOGY - GENERAL VALERIE HALL Final Result MARISOL [address] [facility] Department [place] [address] * Screening Mammogram Bilateral W Batool (12/01/2023 3:11 PM CORN DETASSELER) Anatomical Region Laterality Modality Breast Bilateral Mammography Impressions 12/01/2023 3:14 PM CORN DETASSELER BI-RADS?? ATLAS category (overall): 1 - Negative There is no mammographic evidence of malignancy. A 1 year screening mammogram is recommended. The patient has been or will be contacted. We recommend annual screening mammography for women at average risk of breast cancer beginning at age 40, based on guidelines of the [place] [employer] (ACR Practice Parameter for the Performance of Screening and Diagnostic Mammography) and [place] [employer] and [employer]nec[employer]. For women with and elevated risk of breast cancer, please refer to the ACR Practice Parameter for specific screening recommendations. The patient will be entered into a reminder system with a target due date of 1 year for her next screening exam. Narrative 12/01/2023 3:14 PM CORN DETASSELER Screening Mammogram Bilateral W Batool: 12/01/23 The [...] has taken or is taking vitamin-D. ? Psychological Assistant/Model: [employer] A (S/N [id number]) CLINICAL INFORMATION: Current height: ??67 ??inches ? [...] AM T: ??06/30/2023 7:59 AM Report ID: [id number] Reading Location: ??[id number] Procedure Note Ghazala Junior MD - 06/30/2023 EXAM DESCRIPTION: DEXA AXIAL SKELETON BONE DENSITY 1 OR MORE SITES REASON FOR STUDY: 67 y/o year old F with given history of:Postmenopausal status. Patient has taken or is taking vitamin-D. Psychological Assistant/Model: [employer] A (S/N [id number]) CLINICAL INFORMATION: Current height: 67 inches Maximum [...] 7:59 AM - Electronically signed by Ghazala Juniro M.D. TW: TW Report ID: [id number] Reading Location: [id number] Aiden MCLEOD IMG DXA PROCEDURES Final Result * Colonoscopy (05/03/2023) Anatomical Region Laterality Modality Other Historical Provider ENDOSCOPY PROCEDURES Jesusita l Result from Last 3 Months or Most Recently Relevant to Health Maintenance Insurance [place] CHO[place] MEDICARE SOLUT[place] [facility] MEDICARE SOLUTIONS Care Teams Paper Sorter And Counter Relationship Specialty Start Date End Date Aiden Cage PA PCP - General Family Medicine 08/26/22 Clinton Ramos MD [address] [facility] [address] [place] [address] [place] [id number] Consulting Physician Orthopedic Surgery 02/15/24
--- OUTSIDE RECORDS SUMMARY | 2024-12-30 16:12 | XMS_ITS | Clinical Summary ---
Author Organization [facility] Address [address] [place] [address]. [place], [place] [id number] [place] [address] Care Team Providers Care Manager System Name Role Phone Unavailable Primary Care Provider Unavailabl e Social History Tobacco Use Types Packs/Day Years Used Date Smoking Tobacco: Never Assessed Comments Unknown Sex and Gender Information Value Date Recorded Sex Assigned at Not on file Legal Sex Female 6:16 PM CDT Gender Identity Not on file Sexual Orientation Not on file Plan of Treatment Health Maintenance Due Date Last Done Comments Colorectal Cancer Screening Colonoscopy (10 Years) 1957 Hepatitis C 1975 DTaP, Tdap and Td Vaccines ( 1 - Tdap) 1976 Mammogram Screening 1997 Zoster Vaccines (1 of 2) 2007 Dexa Scan (General) 2022 Pneumococcal Vaccine: 65+ Ye ars (1 of 1 - PCV) 2022 COVID-19 Vaccine (2023-2 5 season) 2024 Influenza Adult (#1) 2024 RSV Immunization or 60+ Years (1 - 1-dose 75+ series) 2032 Meningococcal B Vaccine Aged Out No l onger eligible based on patient's age to complete this topic Meningococcal Vaccine Aged Out No marybeth tess eligible based on patient's age to complete this topic RSV Immunizations Under 20 Months Aged Out No longer eligible based on patient's age to complete this topic
--- OUTSIDE RECORDS SUMMARY | 2024-12-30 16:12 | XMS_ITS | Encounter Summary ---
Author Organization [facility] Facility Care Team Providers Care Biological Technician Name Role Phone Unknown, Notinfzena Primary Care Provider Unavail able Rolando Stanton MD Primary Care Provider [phone] Aiden Cage Primary Care Provider [phone] Casimiro Rutherford MD Unavailable [phone] Clinton Ramos MD Unavailable [phone] Encounter Details Date Type Department Care Team (Latest Contact Info) Description 10/12/2018 Orders Only [facility] CLINCONV ProviderRandy MD [address] [place] [address] Social History Tobacco Use Types Packs/Day Years Used Date Smoking Tobacco: Never Comments Unknown Sex and Gender Information Value Date Recorded Sex Assigned at Not on file Legal Sex Female 6:57 AM INFRASTRUCTURE ANALYST Gender Identity Not on file Sexual Orientation Not on file documented as of this encounter Plan of Treatment Not on file documented as of this encounter Procedures Procedure Name Priority Date/Time Associated Diagnosis Comments SCAN - PATHOLOGY 10/12/2018 12:0 0 AM INFRASTRUCTURE ANALYST documented in this encounter Results * SCAN - PATHOLOGY (10/12/2018 12:00 AM INFRASTRUCTURE ANALYST) Narrative 10/12/2018 12:00 AM INFRASTRUCTURE ANALYST Ordered by an unspecified provider. Historical Provider Final Res ult documented in this encounter Visit Diagnoses Not on filedocumented in this encounter Care Teams Biological Technician Relationship Specialty Start Date End Date Unknown, Goldie PCP - General 08/02/18 04/09/19 Rolando Stanton MD PCP - General Family Medicine 04/10/19 08/25/22 Aiden Cage PA PCP - General Family Medicine 08/26/22 Casimiro Rutherford MD Consulting Physician Cardiology 03/02/23 02/14/24 Clinton Ramos MD [address] [facility] [address] [place] [address] [place] [address] Consulting Physician Orthopedic Surgery 02/15/24 documented as of this encounter
--- OUTSIDE RECORDS SUMMARY | 2024-12-30 16:12 | XMS_ITS | Encounter Summary ---
Author Organization [facility] Facility Care Team Providers Care Mold Shaker Name Role Phone Unknown, Notinfile Primary Care Provider Unavail able Rolando Stanton MD Primary Care Provider [phone] Aiden Cage Primary Care Provider [phone] Casimiro Rutherford MD Unavailable [phone] Clinton Ramos MD Unavailable [phone] Encounter Details Date Type Department Care Team (Latest Contact Info) Description 10/13/2018 Orders Only [facility] CLINCONV ProviderRandy MD [address] [place] [address] Social History Tobacco Use Types Packs/Day Years Used Date Smoking Tobacco: Never Comments Unknown Sex and Gender Information Value Date Recorded Sex Assigned at Not on file Legal Sex Female 6:57 AM TRIM OPERATOR Gender Identity Not on file Sexual Orientation Not on file documented as of this encounter Plan of Treatment Not on file documented as of this encounter Procedures Procedure Name Priority Date/Time Associated Diagnosis Comments SCAN - PATHOLOGY 10/13/2018 12:0 0 AM TRIM OPERATOR documented in this encounter Results * SCAN - PATHOLOGY (10/13/2018 12:00 AM TRIM OPERATOR) Narrative 10/13/2018 12:00 AM TRIM OPERATOR Ordered by an unspecified provider. Historical Provider Final Res ult documented in this encounter Visit Diagnoses Not on filedocumented in this encounter Care Teams Mold Shaker Relationship Specialty Start Date End Date Unknown, Goldie PCP - General 08/02/18 04/09/19 Rolando Stanton MD PCP - General Family Medicine 04/10/19 08/25/22 Aiden Cage PA PCP - General Family Medicine 08/26/22 Casimiro Rutherford MD Consulting Physician Cardiology 03/02/23 02/14/24 Clinton Ramos MD [address] [facility] [address] [place] [address] [place] [address] Consulting Physician Orthopedic Surgery 02/15/24 documented as of this encounter
--- OUTSIDE RECORDS SUMMARY | 2024-12-30 16:12 | XMS_ITS | Encounter Summary ---
Author Organization [facility] Care Team Providers Care Arcade Technician Name Role Phone Unknown, Notinfile Primary Care Provider Unavail able Rolando Stanton MD Primary Care Provider [phone] Aiden Cage Primary Care Provider [phone] Casimiro Rutherford MD Unavailable [phone] Clinton Ramos MD Unavailable [phone] Encounter Details Date Type Department Care Team (Latest Contact Info) Description 04/13/2017 Orders Only [facility] CLINCONV ProviderRandy MD [address] [place] [address] Social History Tobacco Use Types Packs/Day Years Used Date Smoking Tobacco: Never Comments Unknown Sex and Gender Information Value Date Recorded Sex Assigned at Not on file Legal Sex Female 6:57 AM CUSTOMS AND BORDER PROTECTION OFFICER Gender Identity Not on file Sexual Orientation Not on file documented as of this encounter Plan of Treatment Not on file documented as of this encounter Procedures Procedure Name Priority Date/Time Associated Diagnosis Comments COLONOSCOPY - SCAN 04/13/2017 12 :00 AM CDT documented in this encounter Results * COLONOSCOPY - SCAN (04/13/2017 12:00 AM CDT) Narrative 04/13/2017 12:00 AM CDT Ordered by an unspecified provider. Historical Provider Final Res ult documented in this encounter Visit Diagnoses Not on filedocumented in this encounter Care Teams Arcade Technician Relationship Specialty Start Date End Date Unknown, Notisaulo PCP - General 08/02/18 04/09/19 Rolando Stanton MD PCP - General Family Medicine 04/10/19 08/25/22 Aiden Cage PA PCP - General Family Medicine 08/26/22 Casimiro Rutherford MD Consulting Physician Cardiology 03/02/23 02/14/24 Clinton Ramos MD [address] [facility] [address] [address] Consulting Physician Orthopedic Surgery 02/15/24 documented as of this encounter
--- OUTSIDE RECORDS SUMMARY | 2024-12-30 16:12 | XMS_ITS | Continuity of Care Document ---
Author Organization [facility] Address [address] [facility] [address] [place] [address] Phone Care Team Providers Care Informatica Mdm Architect Name Role Phone Robin Foster OT, CHT Unavailable Unavailable Procedures Procedure Date PHYSICAL PERFORMANCE TEST Progress Note THERAPEUTIC EXERCISES NEUROMUSCULAR RE-ED MANUAL THERAPY FUNC ACTIVITY HOT/COLD PACK THERAPEUTIC EXERCISES NEUROMUSCULAR RE-ED MANUAL THERAPY FUNC ACTIVITY HOT/COLD PACK THERAPEUTIC EXERCISES NEUROMUSCULAR RE-ED MANUAL THERAPY FUNC ACTIVITY HOT/COLD PACK THERAPEUTIC EXERCISES NEUROMUSCULAR RE-ED MANUAL THERAPY FUNC ACTIVITY HOT/COLD PACK THERAPEUTIC EXERCISES NEUROMUSCULAR RE-ED MANUAL THERAPY FUNC ACTIVITY HOT/COLD PACK THERAPEUTIC EXERCISES NEUROMUSCULAR RE-ED MANUAL THERAPY FUNC ACTIVITY HOT/COLD PACK THERAPEUTIC EXERCISES NEUROMUSCULAR RE-ED MANUAL THERAPY FUNC ACTIVITY HOT/COLD PACK THERAPEUTIC EXERCISES NEUROMUSCULAR RE-ED MANUAL THERAPY FUNC ACTIVITY HOT/COLD PACK THERAPEUTIC EXERCISES NEUROMUSCULAR RE-ED MANUAL THERAPY FUNC ACTIVITY HOT/COLD PACK THERAPEUTIC EXERCISES NEUROMUSCULAR RE-ED FUNC ACTIVITY HOT/COLD PACK THERAPEUTIC EXERCISES ORTHOTIC FITTING Digit based OT RE-EVALUATION THERAPEUTIC EXERCISES FUNC ACTIVITY HOT/COLD PACK THERAPEUTIC EXERCISES NEUROMUSCULAR RE-ED FUNC ACTIVITY HOT/COLD PACK ELECTRIC STIMULATION UNATT Silicone Gel Sheet 3x4 THERAPEUTIC EXERCISES NEUROMUSCULAR RE-ED FUNC ACTIVITY HOT/COLD PACK ELECTRIC STIMULATION UNATT THERAPEUTIC EXERCISES NEUROMUSCULAR RE-ED FUNC ACTIVITY HOT/COLD PACK ELECTRIC STIMULATION UNATT THERAPEUTIC EXERCISES NEUROMUSCULAR RE-ED FUNC ACTIVITY HOT/COLD PACK ELECTRIC STIMULATION UNATT THERAPEUTIC EXERCISES NEUROMUSCULAR RE-ED FUNC ACTIVITY ORTHOTIC FITTING HOT/COLD PACK ELECTRIC STIMULATION UNATT WOUND CARE < 20 CM THERAPEUTIC EXERCISES NEUROMUSCULAR RE-ED FUNC ACTIVITY ORTHOTIC FITTING /COLD PACK ELECTRIC STIMULATION UNATT WOUND CARE < 20 CM THERAPEUTIC EXERCISES NEUROMUSCULAR RE-ED FUNC ACTIVITY HOT/COLD PACK ELECTRIC STIMULATION UNA THERAPEUTIC EXERCISES NEUROMUSCULAR RE-ED FUNC ACTIVITY HOT/COLD PACK ELECTRIC STIMULATION UNATT THERAPEUTIC EXERCISES NEUROMUSCULAR RE-ED MANUAL THERAPY FUNC ACTIVITY HOT/COLD PACK ELECTRIC STIMULATION UNATT THERAPEUTIC EXERCISES NEUROMUSCULAR RE-ED FUNC ACTIVITY HOT/COLD PACK ELECTRIC STIMULATION UNA THERAPEUTIC EXERCISES FUNC ACTIVITY HOT/COLD PACK OT RE-EVALUATION THERAPEUTIC EXERCISES NEUROMUSCULAR RE-ED FUNC ACTIVITY HOT/COLD PACK ELECTRIC STIMULATION UNA THERAPEUTIC EXERCISES NEUROMUSCULAR RE-ED FUNC ACTIVITY HOT/COLD PACK ELECTRIC STIMULATION UNA THERAPEUTIC EXERCISES NEUROMUSCULAR RE-ED FUNC ACTIVITY HOT/COLD PACK ELECTRIC STIMULATION UNA THERAPEUTIC EXERCISES FUNC ACTIVITY OT EVALUATION THERAPEUTIC EXERCISES FUNC ACTIVITY ORTHOTIC FITTING CoBan 1 inch CoBan 2 inch Sterile Gauze Pad Hand OT RE-EVALUATION THERAPEUTIC EXERCISES NEUROMUSCULAR RE-ED MANUAL THERAPY FUNC ACTIVITY HOT/COLD PACK ELECTRIC STIMULATION UNATT THERAPEUTIC EXERCISES NEUROMUSCULAR RE-ED MANUAL THERAPY FUNC ACTIVITY HOT/COLD PACK ELECTRIC STIMULATION UNATT THERAPEUTIC EXERCISES NEUROMUSCULAR RE-ED MANUAL THERAPY FUNC ACTIVITY HOT/COLD PACK ELECTRIC STIMULATION UNA THERAPEUTIC EXERCISES NEUROMUSCULAR RE-ED MANUAL THERAPY FUNC ACTIVITY HOT/COLD PACK ELECTRIC STIMULATION UNATT THERAPEUTIC EXERCISES NEUROMUSCULAR RE-ED MANUAL THERAPY FUNC ACTIVITY HOT/COLD PACK ELECTRIC STIMULATION UNA THERAPEUTIC EXERCISES NEUROMUSCULAR RE-ED MANUAL THERAPY FUNC ACTIVITY HOT/COLD PACK ELECTRIC STIMULATION UNA THERAPEUTIC EXERCISES NEUROMUSCULAR RE-ED MANUAL THERAPY FUNC ACTIVITY HOT/COLD PACK ELECTRIC STIMULATION UNA THERAPEUTIC EXERCISES NEUROMUSCULAR RE-ED MANUAL THERAPY FUNC ACTIVITY HOT/COLD PACK ELECTRIC STIMULATION UNA THERAPEUTIC EXERCISES NEUROMUSCULAR RE-ED MANUAL THERAPY FUNC ACTIVITY HOT/COLD PACK ELECTRIC STIMULATION UNA Theraputty THERAPEUTIC EXERCISES NEUROMUSCULAR RE-ED MANUAL THERAPY FUNC ACTIVITY HOT/COLD PACK OT RE-EVALUATION THERAPEUTIC EXERCISES NEUROMUSCULAR RE-ED MANUAL THERAPY FUNC ACTIVITY HOT/COLD PACK ELECTRIC STIMULATION UNA THERAPEUTIC EXERCISES NEUROMUSCULAR RE-ED MANUAL THERAPY FUNC ACTIVITY HOT/COLD PACK ELECTRIC STIMULATION UNA THERAPEUTIC EXERCISES NEUROMUSCULAR RE-ED MANUAL THERAPY FUNC ACTIVITY HOT/COLD PACK ELECTRIC STIMULATION UNA THERAPEUTIC EXERCISES NEUROMUSCULAR RE-ED MANUAL THERAPY FUNC ACTIVITY HOT/COLD PACK ELECTRIC STIMULATION UNA THERAPEUTIC EXERCISES NEUROMUSCULAR RE-ED MANUAL THERAPY FUNC ACTIVITY ULTRASOUND THERAPY ELECTRIC STIMULATION UNA THERAPEUTIC EXERCISES NEUROMUSCULAR RE-ED MANUAL THERAPY FUNC ACTIVITY HOT/COLD PACK ELECTRIC STIMULATION UNA THERAPEUTIC EXERCISES NEUROMUSCULAR RE-ED MANUAL THERAPY FUNC ACTIVITY HOT/COLD PACK THERAPEUTIC EXERCISES NEUROMUSCULAR RE-ED MANUAL THERAPY FUNC ACTIVITY ULTRASOUND THERAPY THERAPEUTIC EXERCISES NEUROMUSCULAR RE-ED MANUAL THERAPY FUNC ACTIVITY ULTRASOUND THERAPY THERAPEUTIC EXERCISES NEUROMUSCULAR RE-ED MANUAL THERAPY FUNC ACTIVITY ULTRASOUND THERAPY OT RE-EVALUATION THERAPEUTIC EXERCISES MANUAL THERAPY FUNC ACTIVITY ULTRASOUND THERAPY THERAPEUTIC EXERCISES MANUAL THERAPY FUNC ACTIVITY ULTRASOUND THERAPY THERAPEUTIC EXERCISES MANUAL THERAPY FUNC ACTIVITY ORTHOTIC FITTING ULTRASOUND THERAPY THERAPEUTIC EXERCISES MANUAL THERAPY FUNC ACTIVITY ULTRASOUND THERAPY THERAPEUTIC EXERCISES MANUAL THERAPY FUNC ACTIVITY ULTRASOUND THERAPY HOT/COLD PACK THERAPEUTIC EXERCISES MANUAL THERAPY FUNC ACTIVITY ULTRASOUND THERAPY HOT/COLD PACK THERAPEUTIC EXERCISES MANUAL THERAPY FUNC ACTIVITY ORTHOTIC FITTING ULTRASOUND THERAPY Silicone Gel Sheet 3x4 LMB Extension Forearm THERAPEUTIC EXERCISES MANUAL THERAPY FUNC ACTIVITY ULTRASOUND THERAPY HOT/COLD PACK Foamwrap/Julio Wrap THERAPEUTIC EXERCISES MANUAL THERAPY FUNC ACTIVITY HOT/COLD PACK THERAPEUTIC EXERCISES MANUAL THERAPY HOT/COLD PACK THERAPEUTIC EXERCISES MANUAL THERAPY HOT/COLD PACK THERAPEUTIC EXERCISES MANUAL THERAPY WOUND CARE < 20 CM OT RE-EVALUATION THERAPEUTIC EXERCISES WOUND CARE < 20 CM THERAPEUTIC EXERCISES WOUND CARE < 20 CM THERAPEUTIC EXERCISES THERAPEUTIC EXERCISES ORTHOTIC FITTING WOUND CARE < 20 CM CoBan 2 inch Non-compressive stockinette per foot Jun THERAPEUTIC EXERCISES THERAPEUTIC EXERCISES ORTHOTIC FITTING THERAPEUTIC EXERCISES ORTHOTIC FITTING THERAPEUTIC EXERCISES HOT/COLD PACK THERAPEUTIC EXERCISES ORTHOTIC FITTING OT RE-EVALUATION THERAPEUTIC EXERCISES ORTHOTIC FITTING OT EVALUATION THERAPEUTIC EXERCISES ORTHOTIC FITTING Non-compressive stockinette per foot May Surgitube-Box Forearm Advance Directives Directive Yes / No Effective Date File Name No Information Encounters Encounter Description Practice Location Reason(s) For Visit Diagnoses Date Provider Providers Copied on Encounter [facility] [address], [id number], tel:[phone] Chilo Laceration of musc/fasc/ten d at wrs/hnd lv, left hand, subs b- 7 Cristian Kelly. [address] [place] [address], [address], [place], [place], [facility], [place]. tel:[phone] Referring Provider: Jeffery Win, [address] [facility] [address], [place], [address]. tel:[phone], [place], [place], [id number], tel:[phone] [place] No Information 6 Hapaulald Cleopatra. [address] [place] [address], [address], [place], [place], [facility], [place]. tel:[phone] Referring Provider: Jeffery Win, [address] [facility] [address], [place], [address]. tel:[phone], [place], [place], [id number], tel:[phone] [place] No Information 6 Hauschild Cleopatra. [address] [place] [address], [address], [place], [address], [place]. tel:[phone] Referring Provider: Jeffery Win, [address] [facility] [address], [place], [address]. tel:[phone] [address], [place], [id number], tel:[phone] [place] No Information 0 6 Hauschild Cleopatra. [address] [facility], [address], [place], [address], [place]. tel:[phone] Referring Provider: Jeffery Win, [address] [facility] [address], [place], [address]. tel:[phone] [address], [place], [place], [id number], [place] tel:[phone] [place] No Information 6 Hauschild Cleopatra. [address] [place] [address], [address], [place], [address], [place]. tel:[phone] Referring Provider: Jeffery Win, [address] [facility] [address], [place], [address]. tel:[phone] [address], [place], [place], [id number], [place] tel:[phone] [place] No Information 6 Hauschild Cleopatra. [address] [place] [address], [address], [place], [address], [place]. tel:[phone] Referring Provider: Jeffery Win, [address] [facility] [address], [place], [address]. tel:[phone] [address], [place], [place], [address], [place] tel:[phone] [place] No Information 6 Hauschild Cleopatra. [address] [place] [address], [address], [place], [address], [place]. tel:[phone] Referring Provider: Jeffery Win, [address] [facility] [address], [place], [address]. tel:[phone] [address], [place], [id number], [place] tel:[phone] [place] No Information 6 Hauschild Cleopatra. [address] [place] [address], [address], [place], [address], [place]. tel:[phone] Referring Provider: Jeffery Win, [address] [facility] [address], [place], [address]. tel:[phone], [place], [place], [id number], [place] tel:[phone] [place] No Information 6 Deya Cleopatra. [address] [place] [address], [address], [place], [facility], [place]. tel:[phone] Referring Provider: Jeffery Win, [address] [facility] [address], [place], [address]. tel:[phone] [address], [place], [place], [id number], [place] tel:[phone] [place] No Information 6 Deya Cleopatra. [address] [place] [address], [address], [place], [address], [place]. tel:[phone] Referring Provider: Jeffery Win, [address] [place] [address] [address], [place], [address]. tel:[phone] [place] [address], [place], [place], [id number], [place] tel:[phone] [place] No Information 6 Deya Whelan. [address] [place] [address], [address], [place], [address], [place]. tel:[phone] Referring Provider: Jeffery Win, [address] [facility] [address], [place], [address]. tel:[phone], [place], [place], [id number], [place] tel:[phone] [place] No Information 6 Bagkaya Lawa. [address] [place] [address], [address], [place], [address], [place]. tel:[phone] Referring Provider: Jeffery Win, [address] [facility] [address], [place], [address]. tel:[phone] [place] [address] [facility] [address], [place], [place], [id number], tel:[phone] [place] No Information 6 Hauschild Cleopatra. [address] [facility], [address], [place], [address], [place]. tel:[phone] Referring Provider: Jeffery Win, [address] [facility] [address], [place], [address]. tel:[phone] [address] [address], [place], [place], [id number], tel:[phone] [place] No Information 6 Hauschild Cleopatra. [address] [facility], [address], [place], [address], [place]. tel:[phone] Referring Provider: Jeffery Win, [address] [facility] [address], [place], [address]. tel:[phone] [place] [address], [id number], [place] tel:[phone] [place] No Information 6 Hauschild Cleopatra. [address] [facility], [address], [place], [address], [place]. tel:[phone] Referring Provider: Jeffery Win, [address] [facility] [address], [place], [address]. tel:[phone], [id number], [place] tel:[phone] [place] No Information 6 Hauschild Cleopatra. [address] [facility], [address], [place], [address], [place]. tel:[phone] Referring Provider: Jeffery Win, [address] [facility] [address], [place], [address]. tel:[phone], [id number], tel:[phone] [place] No Information Erickson-0 8-201 6 Hauschild Cleopatra. [address] [facility], [address], [place], [address], [place]. tel:[phone] Referring Provider: Jeffery Win, [address] [facility] [address], [place], [address]. tel:[phone], [place], [place], [address], [place] tel:[phone] [place] No Information 6-201 6 Hauschild Cleopatra. [address] [facility], [address], [place], [address], [place]. tel:[phone] Referring Provider: Jeffery Win, [address] [facility] [address], [place], [address]. tel:[phone] [place] [address], [place], [place], [address], [place] tel:[phone] [place] No Information 4-201 6 Hauschild Cleopatra. [address] [place] [address], [address], [place], [address], [place]. tel:[phone] Referring Provider: Jeffery Win, [address] [facility] [address], [place], [address]. tel:[phone], [place], [place], [address], [place] tel:[phone] [place] No Information 1-201 5 Hauschild Cleopatra. [address] [facility], [address], [place], [address], [place]. tel:[phone] Referring Provider: Jeffery Win, [address] [facility] [address], [place], [address]. tel:[phone], [place], [place], [address], [place] tel:[phone] [place] No Information 0-201 5 Hauschild Cleopatra. [address] [place] [address], [address], [place], [address], [place]. tel:[phone] Referring Provider: Jeffery Win, [address] [facility] [address], [place], [address]. tel:[phone] [place] [address] [address], [place], [place], [address], tel:[phone] [place] No Information Dec-2 8-201 5 Pk Sprague. [address] [place] [address], [address], [place], [address], [place]. tel:[phone] Referring Provider: Jeffery Win, [address] [facility] [address], [place], [address]. tel:[phone] [place] [address], [id number], [place] tel:[phone] [place] No Information Dec-2 4-201 5 Liliam Bejarano. [address] [place] [address], [address], [place], [address], [place]. tel:[phone] Referring Provider: Jeffery Win, [address] [facility] [address], [place], [address]. tel:[phone] [place] [address], [place], [place], [id number], [place] tel:[phone] [place] No Information Dec-2 3-201 5 Deya Whelan. [address] [place] [address], [address], [place], [address], [place]. tel:[phone] Referring Provider: Jeffery Win, [address] [facility] [address], [place], [address]. tel:[phone] [place] [address], [id number], [place] tel:[phone] [place] No Information Dec-2 2-201 5 Deya Whelan. [address] [place] [address], [address], [place], [address], [place]. tel:[phone] Referring Provider: Jeffery Win, [address] [facility] [address], [place], [address]. tel:[phone] [facility], [address] [place] [address] [address], [place], [place], [id number], [place] tel:[phone] [place] No Information 8 5 Hauschild Cleopatra. [address] [place] [address], [address], [place], [facility], [place]. tel:[phone] Referring Provider: Jeffery Win, [address] [facility] [address], [place], [address]. tel:[phone], [place], [place], [id number], [place] tel:[phone] [place] No Information 7 5 [facility] [place], [place]. Referring Provider: Jeffery Win, [address] [facility] [address], [place], [address]. tel:[phone] [place] [address], [address] [place] [address] [address], [place], [place], [address], [place] tel:[phone] [place] No Information 5 Hausccharlotteld Cleopatra. [address] [place] [address], [address], [place], [address], [place]. tel:[phone] Referring Provider: Jeffery Win, [address] [facility] [address], [place], [address]. tel:[phone] [facility] [address], [place], [place], [address], [place] tel:[phone] [place] No Information 5 5 [place]. , [place], [place]. Referring Provider: Jeffery Win, [address] [facility] [address], [place], [address]. tel:[phone] [facility], [address] [place] [address] [address], [place], [place], [address], [place] tel:[phone] [place] No Information 5 Hauschild Cleopatra. [address] [facility], [address], [place], [address], [place]. tel:[phone] Referring Provider: Jeffery Win, [address] [facility] [address], [place], [address]. tel:[phone] [place] [address], [place], [place], [address], [place] tel:[phone] [place] No Information 4- 5 Hauschild Cleopatra. [address] [facility], [address], [place], [address], [place]. tel:[phone] Referring Provider: Jeffery Win, [address] [place] [address] [address], [place], [address]. tel:[phone] [place] [address], [place], [place], [id number], [place] tel:[phone] [place] No Information Sep-0 5-201 5 Hauschild Cleopatra. [address] [facility], [address], [place], [address], [place]. tel:[phone] Referring Provider: Jeffery Win, [address] [facility] [address], [place], [address]. tel:[phone] [place] [address], [place], [place], [id number], [place] tel:[phone] [place] No Information -201 5 Hauschijane TrejoCleopatra. [address] [facility], [address], [place], [address], [place]. tel:[phone] Referring Provider: Jeffery Win, [address] [facility] [address], [place], [address]. tel:[phone] [facility], [address] [place] [address] [address], [place], [place], [id number], [place] tel:[phone] [place] No Information Nov-0 2-201 5 David Su. . Referring Provider: Jeffery Win, [address] [facility] [address], [place], [address]. tel:[phone], [id number], tel:[phone] [place] No Information Aug-3 0-201 5 Hauschild Cleopatra. [address] [place] [address], [address], [place], [address], [place]. tel:[phone] Referring Provider: Jeffery Win, [address] [facility] [address], [place], [address]. tel:[phone], [id number], [place] tel:[phone] [place] No Information Aug-2 8-201 5 Hauschild Cleopatra. [address] [place] [address], [address], [place], [address], [place]. tel:[phone] Referring Provider: Jeffery Win, [address] [facility] [address], [place], [address]. tel:[phone], [id number], [place] tel:[phone] [place] No Information Aug-2 6-201 5 Hauschild Cleopatra. [address] [place] [address], [address], [place], [address], [place]. tel:[phone] Referring Provider: Jeffery Win, [address] [facility] [address], [place], [address]. tel:[phone], [id number], [place] tel:[phone] [place] No Information Aug-2 3-201 5 Hauschild Cleopatra. [address] [place] [address], [address], [place], [address], [place]. tel:[phone] Referring Provider: Jeffery Win, [address] [facility] [address], [place], [address]. tel:[phone], [place], [place], [address], [place] tel:[phone] [place] No Information 5 Hauschild Cleopatra. [address] [place] [address], [address], [place], [address], [place]. tel:[phone] Referring Provider: Jeffery Win, [address] [place] [address] [address], [place], [address]. tel:[phone], [place], [place], [address], [place] tel:[phone] [place] No Information 5 Hauschild Cleopatra. [address] [place] [address], [address], [place], [address], [place]. tel:[phone] Referring Provider: Jeffery Win, [address] [place] [address] [address], [place], [address]. tel:[phone] [facility], [place], [place], [id number], [place] tel:[phone] [place] No Information 5 Hauschild Cleopatra. [address] [place] [address], [address], [place], [address], [place]. tel:[phone] Referring Provider: Jeffery Win, [address] [facility] [address], [place], [address]. tel:[phone], [place], [place], [id number], [place] tel:[phone] [place] No Information 5 Hauschild Cleopatra. [address] [place] [address], [address], [place], [address], [place]. tel:[phone] Referring Provider: Jeffery Win, [address] [facility] [address], [place], [address]. tel:[phone] [place] [address], [place], [place], [id number], [place] tel:[phone] [place] No Information 4-201 5 Hauschild Cleopatra. [address] [place] [address], [address], [place], [place], [facility], [place]. tel:[phone] Referring Provider: Jeffery Win, [address] [place] [address] [address], [place], [address]. tel:[phone], [id number], [place] tel:[phone] [place] No Information 2-201 5 Hauschild Cleopatra. [address] [place] [address], [address], [place], [address], [place]. tel:[phone] Referring Provider: Jeffery Win, [address] [place] [address] [address], [place], [address]. tel:[phone], [id number], [place] tel:[phone] [place] No Information 8-201 5 Hauschild Cleopatra. [address] [place] [address], [address], [place], [address], [place]. tel:[phone] Referring Provider: Jeffery Win, [address] [place] [address] [address], [place], [address]. tel:[phone], [id number], [place] tel:[phone] [place] No Information 7-201 5 Hauschild Cleopatra. [address] [place] [address], [address], [place], [address], [place]. tel:[phone] Referring Provider: Jeffery Win, [address] [place] [address] [address], [facility] [place] [place], [address]. tel:[phone], [id number], [place] tel:[phone] [place] Pain in left finger(s)Pain in left wristPain in left forearmEdema, unspecifiedMu scle weakness (generalized) Other specified disorders of muscleStiffne ss of left wrist, not elsewhere classifiedLac erat flxr musc/fasc/ten d l lit fngr at wrs/hnd lv, subs Oct 2-201 5 Hauschild Cleopatra. [address] [place] [address], [address], [place], [facility], [place]. tel:[phone] Referring Provider: Jeffery Win, [address] [facility] [address], [place], [address]. tel:[phone], [id number], [place] tel:[phone] [place] No Information Sep-3 0-201 5 Hauschild Cleopatra. [address] [place] [address], [address], [place], [facility], [place]. tel:[phone] Referring Provider: Jeffery Win, [address] [facility] [address], [place], [address]. tel:[phone], [id number], tel:[phone] [place] No Information Sep-2 9-201 5 Hauschild Cleopatra. [address] [place] [address], [address], [place], [address], [place]. tel:[phone] Referring Provider: Jeffery Win, [address] [facility] [address], [place], [address]. tel:[phone], [id number], [place] tel:[phone] [place] No Information Sep-2 5-201 5 Hauschild Cleopatra. [address] [place] [address], [address], [place], [address], [place]. tel:[phone] Referring Provider: Jeffery Win, [address] [facility] [address], [place], [address]. tel:[phone] [address], [place], [place], [id number], [place] tel:[phone] [place] No Information Sep-2 3-201 5 Hauschild Cleopatra. [address] [place] [address], [address], [place], [address], [place]. tel:[phone] Referring Provider: Jeffery Win, [address] [facility] [address], [place], [address]. tel:[phone], [place], [place], [id number], [place] tel:[phone] [place] No Information Sep-2 1- 5 Hauschild Cleopatra. [address] [place] [address], [address], [place], [address], [place]. tel:[phone] Referring Provider: Jeffery Win, [address] [facility] [address], [place], [address]. tel:[phone] [address], [place], [place], [id number], [place] tel:[phone] [place] No Information Sep-1 8- 5 Hauschild Cleopatra. [address] [place] [address], [address], [place], [address], [place]. tel:[phone] Referring Provider: Jeffery Win, [address] [facility] [address], [place], [address]. tel:[phone] [address], [place], [place], [id number], [place] tel:[phone] [place] No Information Sep-1 6- 5 Hauschild Cleopatra. [address] [place] [address], [address], [place], [address], [place]. tel:[phone] Referring Provider: Jeffery Win, [address] [facility] [address], [place], [address]. tel:[phone] [place] [address], [id number], tel:[phone] [place] No Information Sep-1 4-201 5 Deya Ruizfer. [address] [place] [address], [address], [place], [place], [facility], . tel:[phone] Referring Provider: Jeffery Win, [address] [facility] [address], [place], [address]. tel:[phone], [place], [place], [id number], [place] tel:[phone] [place] No Information Sep-1 1-201 5 Hawoo Ruizfer. [address] [place] [address], [address], [place], [facility], [place]. tel:[phone] Referring Provider: Jeffery Win, [address] [facility] [address], [facility] [place], [address]. tel:[phone], [id number], [place] tel:[phone] [place] No Information Sep-0 9-201 5 Haosvaldohild Cleopatra. [address] [place] [address], [address], [place], [facility], [place]. tel:[phone] Referring Provider: Jeffery Win, [address] [facility] [address], [place], [address]. tel:[phone], [id number], [place] tel:[phone] [place] No Information Sep-0 8-201 5 Hawoo Ruizfer. [address] [place] [address], [address], [place], [facility], [place]. tel:[phone] Referring Provider: Jeffery Win, [address] [facility] [address], [place], [address]. tel:[phone], [id number], [place] tel:[phone] [place] No Information Sep-0 4-201 5 Hauschild Cleopatra. [address] [facility], [address], [place], [facility], [place]. tel:[phone] Referring Provider: Jeffery Win, [address] [facility] [address], [place], [address]. tel:[phone] [address], [place], [id number], [place] tel:[phone] [place] No Information Sep-0 4-201 5 Hauschild Cleopatra. [address] [place] [address], [address], [place], [address], [place]. tel:[phone] Referring Provider: Jeffery Win, [address] [place] [address] [address], [place], [address]. tel:[phone], [id number], [place] tel:[phone] [place] No Information Sep-0 2-201 5 Hauschild Cleopatra. [address] [place] [address], [address], [place], [address], [place]. tel:[phone] Referring Provider: Jeffery Win, [address] [facility] [address], [place], [address]. tel:[phone], [id number], [place] tel:[phone] [place] No Information Sep-0 2-201 5 Hauschild Cleopatra. [address] [facility], [address], [place], [address], [place]. tel:[phone] Referring Provider: Jeffery Win, [address] [facility] [address], [place], [address]. tel:[phone], [id number], tel:[phone] [place] No Information Aug-3 1-201 5 Hauschild Cleopatra. [address] [facility], [address], [place], [address], [place]. tel:[phone] Referring Provider: Jeffery Win, [address] [facility] [address], [place], [address]. tel:[phone] [facility], [address] [place] [address], [place], [place], [id number], [place] tel:[phone] [place] No Information 5 [address] . Referring Provider: Jeffery Wni, [address] [facility] [address], [place], [address]. tel:[phone], [place], [id number], [place] tel:[phone] [place] No Information 5 Hauschild Cleopatra. [address] [facility], [address], [place], [address], [place]. tel:[phone] Referring Provider: Jeffery Win, [address] [facility] [address], [place], [address]. tel:[phone], [place], [place], [id number], [place] tel:[phone] [place] No Information 5 Hauschild Cleopatra. [address] [facility], [address], [place], [address], [place]. tel:[phone] Referring Provider: Jeffery Win, [address] [facility] [address], [place], [address]. tel:[phone], [id number], [place] tel:[phone] [place] No Information 5 Hauschild Cleopatra. [address] [facility], [address], [place], [address], [place]. tel:[phone] Referring Provider: Jeffery Win, [address] [facility] [address], [place], [address]. tel:[phone] [address], [place], [place], [id number], [place] tel:[phone] [place] No Information 5 Hauschild Cleopatra. [address] [facility], [address], [place], [address], [place]. tel:[phone] Referring Provider: Jeffery Win, [address] [facility] [address], [place], [address]. tel:[phone] [address] [address], [place], [place], [id number], [place] tel:[phone] [place] No Information 5 Hauschild Cleopatra. [address] [place] [address], [address], [place], [address], [place]. tel:[phone] Referring Provider: Jeffery Win, [address] [facility] [address], [place], [address]. tel:[phone], [id number], [place] tel:[phone] [place] No Information 5 Hauschild Cleopatra. [address] [place] [address], [address], [place], [address], [place]. tel:[phone] Referring Provider: Jeffery Win, [address] [facility] [address], [place], [address]. tel:[phone], [place], [place], [id number], [place] tel:[phone] [place] No Information 5 Hauschild Cleopatra. [address] [place] [address], [address], [place], [address], [place]. tel:[phone] Referring Provider: Jeffery Win, [address] [facility] [address], [place], [address]. tel:[phone] [address] [address], [place], [place], [id number], [place] tel:[phone] [place] No Information 0-201 5 Hauschild Cleopatra. [address] [place] [address], [address], [place], [address], [place]. tel:[phone] Referring Provider: Jeffery Win, [address] [facility] [address], [place], [address]. tel:[phone] [place] [address] [address], [place], [place], [id number], [place] tel:[phone] [place] No Information Jun-0 7-201 5 Hauschild Cleopatra. [address] [place] [address], [address], [place], [address], [place]. tel:[phone] Referring Provider: Jeffery Win, [address] [facility] [address], [place], [address]. tel:[phone] [address] [address], [place], [place], [id number], [place] tel:[phone] [place] No Information Jun-0 5-201 5 Hauschild Cleopatra. [address] [place] [address], [address], [place], [address], [place]. tel:[phone] Referring Provider: Jeffery Win, [address] [facility] [address], [place], [address]. tel:[phone] [address] [address], [place], [place], [id number], [place] tel:[phone] [place] No Information 0 3-201 5 Hauschild Cleopatra. [address] [place] [address], [address], [place], [address], [place]. tel:[phone] Referring Provider: Jeffery Win, [address] [facility] [address], [place], [address]. tel:[phone], [place], [place], [id number], tel:[phone] [place] No Information 5 Deya Ruizfer. [address] [facility], [facility] [address], [place], [address], [place]. tel:[phone] Referring Provider: Jeffery Win, [address] [facility] [address], [place], [address]. tel:[phone], [id number], tel:[phone] [place] No Information 5 Neidajane TrejoCleopatra. [address] [facility], [facility] [address], [place], [address], [place]. tel:[phone] Referring Provider: Jeffery Win, [address] [facility] [address], [place], [address]. tel:[phone], [id number], tel:[phone] [place] Pain in joint involving hand 5 Suraj Trotter. [address] [facility], [address], [place], [address], [place]. tel:[phone] Referring Provider: Jeffery Win, [address] [facility] [address], [place], [address]. tel:[phone] Family History Family Member Type Diagnosis Age At Onset No Information Payers Payer name Insurance type Covered democrat ID Authordaja catalan(s) One [employer] - [employer] [facility] [id number] Social History Type Description Quantity Date Captured Comments Sex Female Smoking Status No Information Chief Complaint And Reason For Visit No Information Reason For Referral Reason For Referral No Information History Of Present Illness Encounter Date Complaint History Of Prese nt Illness No Information Functional Status Date Functional Assessmen t No Information Instructions Date Instruction Additional Infor mation No Information Assessments Type Assessment Date No Information Patient Care Teams Name Effective Dates (start - stop) Status Members No Information
--- OUTSIDE RECORDS SUMMARY | 2024-12-30 16:17 | XMS_ITS | Continuity of Care Document ---
Author Organization [facility] Address [address] 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 [address] [place] [address], [address], [place], [place], [facility], [place]. tel:[phone] Referring Provider: Jeffery Win, [address] [facility] [address], [place], [address]. tel:[phone], [place], [place], [address], tel:[phone] [place] No Information 6 Hapaulald Cleopatra. [address] [place] [address], [address], [place], [facility], [place]. tel:[phone] Referring Provider: Jeffery Win, [address] [facility] [address], [place], [address]. tel:[phone], [place], [place], [id number], tel:[phone] [place] No Information 6 Hauschild Lceopatra. [address] [place] [address], [address], [place], [address], [place]. tel:[phone] Referring Provider: Jeffery Win, [address] [facility] [address], [place], [address]. tel:[phone], [place], [id number], tel:[phone] [place] No Information 0 6 Hauschild Cleopatra. [address] [facility], [address], [place], [address], [place]. tel:[phone] Referring Provider: Jeffery Win, [address] [facility] [address], [place], [address]. tel:[phone] [address], [place], [place], [address], [place] tel:[phone] [place] No Information 6 Hauschild Cleopatra. [address] [place] [address], [address], [place], [address], [place]. tel:[phone] Referring Provider: Jeffery Win, [address] [facility] [address], [place], [address]. tel:[phone] [address], [place], [place], [address], [place] tel:[phone] [place] No Information 6 Hauschild Cleopatra. [address] [place] [address], [address], [place], [address], [place]. tel:[phone] Referring Provider: Jeffery Win, [address] [facility] [address], [place], [address]. tel:[phone] [address], [place], [place], [address], [place] tel:[phone] [place] No Information 6 Hauschild Cleopatra. [address] [place] [address], [address], [place], [address], [place]. tel:[phone] Referring Provider: Jeffery Win, [address] [facility] [address], [place], [address]. tel:[phone], [place], [id number], [place] tel:[phone] [place] No Information 6 Hauschild Cleopatra. [address] [place] [address], [address], [place], [address], [place]. tel:[phone] Referring Provider: Jeffery Win, [address] [facility] [address], [place], [address]. tel:[phone] [address], [place], [place], [id number], [place] tel:[phone] [place] No Information 6 Deya Cleopatra. [address] [place] [address], [address], [place], [facility], [place]. tel:[phone] Referring Provider: Jeffery Win, [address] [facility] [address], [place], [address]. tel:[phone] [address], [place], [place], [address], [place] tel:[phone] [place] No Information 6 Deya Cleopatra. [address] [place] [address], [address], [place], [address], [place]. tel:[phone] Referring Provider: Jeffery Win, [address] [place] [address] [address], [place], [address]. tel:[phone] [place] [address], [place], [place], [id number], [place] tel:[phone] [place] No Information 6 Deya Whelan. [address] [place] [address], [address], [place], [address], [place]. tel:[phone] Referring Provider: Jeffery Win, [address] [facility] [address], [place], [address]. tel:[phone], [place], [place], [address], [place] tel:[phone] [place] No Information 6 Bagkaya Lawa. [address] [place] [address], [address], [place], [address], [place]. tel:[phone] Referring Provider: Jeffery Win, [address] [facility] [address], [place], [address]. tel:[phone] [place] [address] [facility] 300, [place], [place], [address], tel:[phone] [place] No Information 6 Hauschild Cleopatra. [address] [facility], [address], [place], [address], [place]. tel:[phone] Referring Provider: Jeffery Win, [address] [facility] [address], [place], [address]. tel:[phone] [place] [address], [place], [place], [address], tel:[phone] [place] No Information 6 Hauschild Cleopatra. [address] [facility], [address], [place], [address], [place]. tel:[phone] Referring Provider: Jeffery Win, [address] [facility] [address], [place], [address]. tel:[phone] [place] [address], [id number], [place] tel:[phone] [place] No Information 6 Hauschild Cleopatra. [address] [facility], [address], [place], [address], [place]. tel:[phone] Referring Provider: Jeffery Win, [address] [facility] [address], [place], [address]. tel:[phone], [id number], [place] tel:[phone] [place] No Information 6 Hauschild Cleopatra. [address] [facility], [address], [place], [address], [place]. tel:[phone] Referring Provider: Jeffery Win, [address] [facility] [address], [place], [address]. tel:[phone], [id number], tel:[phone] [place] No Information Erickson-0 8-201 6 Hauschild Cleopatra. [address] [facility], [address], [place], [address], [place]. tel:[phone] Referring Provider: Jeffery Win, [address] [facility] [address], [place], [address]. tel:[phone], [place], [place], [address], [place] tel:[phone] [place] No Information 6-201 6 Hauschild Cleopatra. [address] [facility], [address], [place], [address], [place]. tel:[phone] Referring Provider: Jeffery Win, [address] [facility] [address], [place], [address]. tel:[phone] [place] [address], [place], [place], [address], [place] tel:[phone] [place] No Information 4-201 6 Hauschild Cleopatra. [address] [place] [address], [address], [place], [address], [place]. tel:[phone] Referring Provider: Jeffery Win, [address] [facility] [address], [place], [address]. tel:[phone], [place], [address], [place] tel:[phone] [place] No Information 1-201 5 Hauschild Cleopatra. [address] [facility], [address], [place], [address], [place]. tel:[phone] Referring Provider: Jeffery Win, [address] [facility] [address], [place], [address]. tel:[phone], [place], [place], [address], [place] tel:[phone] [place] No Information 0-201 5 Hauschild Cleopatra. [address] [place] [address], [address], [place], [address], [place]. tel:[phone] Referring Provider: Jeffery Win, [address] [facility] [address], [place], [address]. tel:[phone] [place] [address] [address], [place], [place], [address], tel:[phone] [place] No Information Dec-2 8-201 5 Pk Sprague. [address] [place] [address], [address], [place], [address], [place]. tel:[phone] Referring Provider: Jeffery Win, [address] [facility] [address], [place], [address]. tel:[phone] [place] [address], [id number], [place] tel:[phone] [place] No Information Dec-2 4-201 5 Liliam Bejarano. [address] [place] [address], [address], [place], [address], [place]. tel:[phone] Referring Provider: Jeffery Win, [address] [facility] [address], [place], [address]. tel:[phone] [place] [address] [address], [place], [place], [id number], [place] tel:[phone] [place] No Information Dec-2 3-201 5 Deya Whelan. [address] [place] [address], [address], [place], [address], [place]. tel:[phone] Referring Provider: Jeffery Win, [address] [facility] [address], [place], [address]. tel:[phone] [place] [address], [id number], [place] tel:[phone] [place] No Information Dec-2 2-201 5 Deya Whelan. [address] [place] [address], [address], [place], [address], [place]. tel:[phone] Referring Provider: Jeffery Win, [address] [facility] [address], [place], [address]. tel:[phone] [facility], [address] [place] [address] [address], [place], [place], [address], [place] tel:[phone] [place] No Information 8 5 Hauschild Cleopatra. [address] [place] [address], [address], [place], [facility], [place]. tel:[phone] Referring Provider: Jeffery Win, [address] [facility] [address], [place], [address]. tel:[phone], [place], [place], [id number], [place] tel:[phone] [place] No Information 7 5 Channing Homen , [place], [place]. Referring Provider: Jeffery Win, [address] [facility] [address], [place], [address]. tel:[phone] [place] [address], [address] [place] [address] [address], [place], [place], [address], [place] tel:[phone] [place] No Information 5 Hausccharlotteld Cleopatra. [address] [place] [address], [address], [place], [address], [place]. tel:[phone] Referring Provider: Jeffery Win, [address] [facility] [address], [place], [address]. tel:[phone] [facility] [address], [place], [place], [address], [place] tel:[phone] [place] No Information 5 5 [place] Jey. , [place], [place]. Referring Provider: Jeffery Win, [address] [facility] [address], [place], [address]. tel:[phone] [facility], [address] [place] [address] [address], [place], [place], [address], [place] tel:[phone] [place] No Information 5 Hauschild Cleopatra. [address] [facility], [address], [place], [address], [place]. tel:[phone] Referring Provider: Jeffery Win, [address] [facility] [address], [place], [address]. tel:[phone] [place] [address], [place], [place], [address], [place] tel:[phone] [place] No Information 4- 5 Hauschild Cleopatra. [address] [facility], [address], [place], [address], [place]. tel:[phone] Referring Provider: Jeffery Win, [address] [place] [address] [address], [place], [address]. tel:[phone] [place] [address], [place], [place], [address], [place] tel:[phone] [place] No Information Sep-0 5-201 5 Hauschild Cleopatra. [address] [facility], [address], [place], [address], [place]. tel:[phone] Referring Provider: Jeffery Win, [address] [facility] [address], [place], [address]. tel:[phone] [place] [address], [place], [place], [address], [place] tel:[phone] [place] No Information -201 5 Hauschijane TrejoCleopatra. [address] [facility], [address], [place], [address], [place]. tel:[phone] Referring Provider: Jeffery Win, [address] [facility] [address], [place], [address]. tel:[phone] [facility], [address] [place] [address] 300, [place], [place], [id number], [place] tel:[phone] [place] No Information Nov-0 2-201 5 David Su. . Referring Provider: Jeffery Win, [address] [facility] [address], [place], [address]. tel:[phone], [id number], tel:[phone] [place] No Information Aug-3 0-201 5 Hauschild Cleopatra. [address] [place] [address], [address], [place], [address], [place]. tel:[phone] Referring Provider: Jeffery Win, [address] [facility] [address], [place], [address]. tel:[phone], [id number], [place] tel:[phone] [place] No Information Aug-2 8-201 5 Hauschild Cleopatra. [address] [place] [address], [address], [place], [address], [place]. tel:[phone] Referring Provider: Jeffery Win, [address] [facility] [address], [place], [address]. tel:[phone], [id number], [place] tel:[phone] [place] No Information Aug-2 6-201 5 Hauschild Cleopatra. [address] [place] [address], [address], [place], [address], [place]. tel:[phone] Referring Provider: Jeffery Win, [address] [facility] [address], [place], [address]. tel:[phone], [id number], [place] tel:[phone] [place] No Information Aug-2 3-201 5 Hauschild Cleopatra. [address] [place] [address], [address], [place], [address], [place]. tel:[phone] Referring Provider: Jeffery Win, [address] [facility] [address], [place], [address]. tel:[phone] [address], [place], [place], [address], [place] tel:[phone] [place] No Information 5 Hauschild Cleopatra. [address] [place] [address], [address], [place], [address], [place]. tel:[phone] Referring Provider: Jeffery Win, [address] [place] [address] [address], [place], [address]. tel:[phone], [place], [place], [address], [place] tel:[phone] [place] No Information 5 Hauschild Cleopatra. [address] [place] [address], [address], [place], [address], [place]. tel:[phone] Referring Provider: Jeffery Win, [address] [place] [address] [address], [place], [address]. tel:[phone] [address] [facility], [place], [place], [address], [place] tel:[phone] [place] No Information 5 Hauschild Cleopatra. [address] [place] [address], [address], [place], [address], [place]. tel:[phone] Referring Provider: Jeffery Win, [address] [facility] [address], [place], [address]. tel:[phone] [address], [place], [place], [address], [place] tel:[phone] [place] No Information 5 Hauschild Cleopatra. [address] [place] [address], [address], [place], [address], [place]. tel:[phone] Referring Provider: Jeffery Win, [address] [facility] [address], [place], [address]. tel:[phone] [place] [address], [place], [place], [address], [place] tel:[phone] [place] No Information 4-201 5 Hauschild Cleopatra. [address] [place] [address], [address], [place], [facility], [place]. tel:[phone] Referring Provider: Jeffery Win, [address] [place] [address] [address], [place], [address]. tel:[phone], [id number], [place] tel:[phone] [place] No Information 2-201 5 Hauschild Cleopatra. [address] [place] [address], [address], [place], [address], [place]. tel:[phone] Referring Provider: Jeffery Win, [address] [place] [address] [address], [place], [address]. tel:[phone], [id number], [place] tel:[phone] [place] No Information 8-201 5 Hauschild Cleopatra. [address] [place] [address], [address], [place], [address], [place]. tel:[phone] Referring Provider: Jeffery Win, [address] [place] [address] [address], [place], [address]. tel:[phone], [id number], [place] tel:[phone] [place] No Information 7-201 5 Hauschild Cleopatra. [address] [place] [address], [address], [place], [address], [place]. tel:[phone] Referring Provider: Jeffery Win, [address] [place] [address] [address], [facility], [address]. tel:[phone], [id number], [place] tel:[phone] [place] Pain in left finger(s)Pain in left wristPain in left forearmEdema, unspecifiedMu scle weakness (generalized) Other specified disorders of muscleStiffne ss of left wrist, not elsewhere classifiedLac erat flxr musc/fasc/ten d l lit fngr at wrs/hnd lv, subs Oct 2-201 5 Hauschild Cleopatra. [address] [place] [address], [address], [place], [facility], [place]. tel:[phone] Referring Provider: Jeffery Win, [address] [facility] [address], [facility], [address]. tel:[phone], [id number], [place] tel:[phone] [place] No Information Sep-3 0-201 5 Hauschild Cleopatra. [address] [place] [address], [address], [place], [facility], [place]. tel:[phone] Referring Provider: Jeffery Win, [address] [facility] [address], [place], [address]. tel:[phone], [id number], tel:[phone] [place] No Information Sep-2 9-201 5 Hauschild Cleopatra. [address] [place] [address], [address], [place], [address], [place]. tel:[phone] Referring Provider: Jeffery Win, [address] [facility] [address], [place], [address]. tel:[phone], [id number], [place] tel:[phone] [place] No Information Sep-2 5-201 5 Hauschild Cleopatra. [address] [place] [address], [address], [place], [address], [place]. tel:[phone] Referring Provider: Jeffery Win, [address] [facility] [address], [place], [address]. tel:[phone] [address], [place], [place], [address], [place] tel:[phone] [place] No Information Sep-2 3-201 5 Hauschild Cleopatra. [address] [place] [address], [address], [place], [address], [place]. tel:[phone] Referring Provider: Jeffery Win, [address] [facility] [address], [place], [address]. tel:[phone] [address], [place], [place], [id number], [place] tel:[phone] [place] No Information Sep-2 1- 5 Hauschild Cleopatra. [address] [place] [address], [address], [place], [address], [place]. tel:[phone] Referring Provider: Jeffery Win, [address] [facility] [address], [place], [address]. tel:[phone] [address], [place], [place], [address], [place] tel:[phone] [place] No Information Sep-1 8- 5 Hauschild Cleopatra. [address] [place] [address], [address], [place], [address], [place]. tel:[phone] Referring Provider: Jeffery Win, [address] [facility] [address], [place], [address]. tel:[phone] [address], [place], [place], [address], [place] tel:[phone] [place] No Information Sep-1 6- 5 Hauschild Cleopatra. [address] [place] [address], [address], [place], [address], [place]. tel:[phone] Referring Provider: Jeffery Win, [address] [facility] [address], [place], [address]. tel:[phone] [place] [address], [id number], tel:[phone] [place] No Information Sep-1 4-201 5 Deya Ruizfer. [address] [place] [address], [address], [place], [facility], . tel:[phone] Referring Provider: Jeffery Win, [address] [facility] [address], [facility] [place], [address]. tel:[phone], [place], [place], [address], [place] tel:[phone] [place] No Information Sep-1 1-201 5 Hawoo Ruizfer. [address] [place] [address], [address], [place], [facility], [place]. tel:[phone] Referring Provider: Jeffery Win, [address] [facility] [address], [facility] [place], [address]. tel:[phone], [id number], [place] tel:[phone] [place] No Information Sep-0 9-201 5 Haosvaldohild Cleopatra. [address] [place] [address], [address], [place], [facility], [place]. tel:[phone] Referring Provider: Jeffery Win, [address] [facility] [address], [facility] [place], [address]. tel:[phone], [id number], [place] tel:[phone] [place] No Information Sep-0 8-201 5 Hawoo Ruizfer. [address] [place] [address], [address], [place], [facility], [place]. tel:[phone] Referring Provider: Jeffery Win, [address] [facility] [address], [place], [address]. tel:[phone], [id number], [place] tel:[phone] [place] No Information Sep-0 4-201 5 Hauschild Cleopatra. [address] [facility], [address], [place], [facility], [place]. tel:[phone] Referring Provider: Jeffery Win, [address] [facility] [address], [place], [address]. tel:[phone] [address] [address], [place], [place], [address], [place] tel:[phone] [place] No Information Sep-0 4-201 5 Hauschild Cleopatra. [address] [place] [address], [address], [place], [address], [place]. tel:[phone] Referring Provider: Jeffery Win, [address] [place] [address] [address], [place], [address]. tel:[phone], [id number], [place] tel:[phone] [place] No Information Sep-0 2-201 5 Hauschild Cleopatra. [address] [place] [address], [address], [place], [address], [place]. tel:[phone] Referring Provider: Jeffery Win, [address] [facility] [address], [place], [address]. tel:[phone], [id number], [place] tel:[phone] [place] No Information Sep-0 2-201 5 Hauschild Cleopatra. [address] [facility], [address], [place], [address], [place]. tel:[phone] Referring Provider: Jeffery Win, [address] [facility] [address], [place], [address]. tel:[phone], [id number], tel:[phone] [place] No Information Aug-3 1-201 5 Hauschild Cleopatra. [address] [facility], [address], [place], [address], [place]. tel:[phone] Referring Provider: Jeffery Win, [address] [facility] [address], [place], [address]. tel:[phone] [facility], [address] [place] [address], [place], [place], [id number], [place] tel:[phone] [place] No Information 5 David Su. . Referring Provider: Jeffery Win, [address] [facility] [address], [place], [address]. tel:[phone], [place], [place], [address], [place] tel:[phone] [place] No Information 5 Hauschild Cleopatra. [address] [facility], [address], [place], [address], [place]. tel:[phone] Referring Provider: Jeffery Win, [address] [facility] [address], [place], [address]. tel:[phone], [place], [place], [address], [place] tel:[phone] [place] No Information 5 Hauschild Cleopatra. [address] [facility], [address], [place], [address], [place]. tel:[phone] Referring Provider: Jeffery Win, [address] [facility] [address], [place], [address]. tel:[phone], [id number], [place] tel:[phone] [place] No Information 5 Hauschild Cleopatra. [address] [facility], [address], [place], [address], [place]. tel:[phone] Referring Provider: Jeffery Win, [address] [facility] [address], [place], [address]. tel:[phone] [address] [address], [place], [place], [address], [place] tel:[phone] [place] No Information 5 Hauschild Cleopatra. [address] [facility], [address], [place], [address], [place]. tel:[phone] Referring Provider: Jeffery Win, [address] [facility] [address], [place], [address]. tel:[phone] [address] [address], [place], [place], [id number], [place] tel:[phone] [id number] Madelia No Information 5 Hauschild Cleopatra. [address] [place] [address], [address], [place], [address], [place]. tel:[phone] Referring Provider: Jeffery Win, [address] [facility] [address], [place], [address]. tel:[phone], [id number], [place] tel:[phone] Madelia No Information 5 Hauschild Cleopatra. [address] [place] [address], [address], [place], [address], [place]. tel:[phone] Referring Provider: Jeffery Win, [address] [facility] [address], [place], [address]. tel:[phone], [place], [place], [id number], [place] tel:[phone] Madelia No Information 5 Hauschild Cleopatra. [address] [place] [address], [address], [place], [address], [place]. tel:[phone] Referring Provider: Jeffery Win, [address] [facility] [address], [place], [address]. tel:[phone] [address], [place], [place], [id number], [place] tel:[phone] Madelia No Information 0-201 5 Hauschild Cleopatra. [address] [place] [address], [address], [place], [address], [place]. tel:[phone] Referring Provider: Jeffery iWn, [address] [facility] [address], [place], [address]. tel:[phone] [place] [address] [address], [place], [place], [id number], [place] tel:[phone] Madelia No Information Jun-0 7-201 5 Hauschild Cleopatra. [address] [place] [address], [address], [place], [address], [place]. tel:[phone] Referring Provider: Jeffery Win, [address] [facility] [address], [place], [address]. tel:[phone] [address], [place], [place], [id number], [place] tel:[phone] Madelia No Information Jun-0 5-201 5 Hauschild Cleopatra. [address] [place] [address], [address], [place], [address], [place]. tel:[phone] Referring Provider: Jeffery Win, [address] [facility] [address], [place], [address]. tel:[phone] [address] [address], [place], [place], [id number], [place] tel:[phone] Lucas No Information 0 3-201 5 Hauschild Cleopatra. [address] [place] [address], [address], [place], [address], [place]. tel:[phone] Referring Provider: Jeffery Win, [address] [facility] [address], [place], [address]. tel:[phone], [place], [place], [id number], tel:[phone] Lucas No Information 5 Deya Ruizfer. [address] [facility], [facility] [address], [place], [address], [place]. tel:[phone] Referring Provider: Jeffery Win, [address] [facility] [address], [place], [address]. tel:[phone], [id number], tel:[phone] Madelia No Information 5 Neidajane TrejoCleopatra. [address] [facility], [facility] [address], [place], [address], [place]. tel:[phone] Referring Provider: Jeffery Win, [address] [facility] [address], [place], [address]. tel:[phone], [id number], tel:[phone] [place] Pain in joint involving hand 5 Suraj Trotter. [address] [facility], [address], [place], [address], [place]. tel:[phone] Referring Provider: Jeffery Win, [address] [facility] [address], [place], [address]. tel:[phone] Family History Family Member Type Diagnosis Age At Onset No Information Payers Payer name Insurance type Covered libertarian ID Authordaja catalan(s) One [employer] - [employer] [facility] [id number] Social History Type Description Quantity Date Captured [...]
--- OUTSIDE RECORDS SUMMARY | 2024-12-30 16:17 | XMS_ITS | Continuity of Care Document ---
Author Organization [facility] Address [address] [place] [address] Phone Care Team Providers Care Social Service Director Name Role Phone Tracy JOSHI, Abdullahi Unavailable [...] on Encounter DISABILITY EXAMINATION [facility] , [address], [place], [address], [place] tel:[phone] [facility] Bilateral hand pain Tracy Fernando. [address], [place], [place], [id number]. tel:[phone] Family History Family Member Type Diagnosis Age At Onset Mother Problem (finding) diabetes mellitus type 2 Mother Problem (finding) Cancer, unknown Father Problem (finding) Father Problem (finding) Cancer, unknown (Cause Of ) Mother Problem (finding) hypertension Payers Payer name Insurance type Covered alliance party ID Authoriza tion(s) No Information Social History [...]
[2024-12-30 16:26] VITALS: BP 150/71; PULSE 85; RESP 16; TEMP 36.9; O2SAT 97
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
== END 2024-12-30 17:19 | disposition home or self-care (01) ==
PROVIDERS: Emergency Provider Registered Nurse; PCP Physician Assistant Medical
DX: S00.531A Contusion of lip, initial encounter (principal); S00.83XA Contusion of other part of head, initial encounter; Y04.2XXA Assault by strike against or bumped into by another person, initial encounter; I10 Essential (primary) hypertension; M19.90 Unspecified osteoarthritis, unspecified site
CPT/HCPCS: 99212; G0463